=== PATIENT | female | born 1960 | race Caucasian/White ===

== ENCOUNTER 2016-06-21 15:22 | Observation (INO) | payer MEDICARE, OTHER ==
[~2016-06-21] VITALS: Ht 172.7 cm; Wt 67.0 kg
[~2016-06-21 15:22] MED LIST: ALBU0.086 NEB; ESZO3 PO; GABA300C3 PO; HYDR-3129 PO; KEPP1000 PO; METO50TA PO; ORPH100T PO; OXYC5 PO; TERI14TA PO; ZITH250T PO
[2016-06-21 15:33] VITALS: BP 134/78; PULSE 85; RESP 24; TEMP 98.2; O2SAT 89
--- NOTE | 2016-06-21 15:38 | PD ---
Physical Exam Time Seen by Provider: 15:36 Narrative 56yo F c/o SOB, dizziness, chills, aching x3 days. Denies V,D. Reports chest congestion. Denies chest pain. Subjective fever. Has had barium swallow verifying aspiration. Hx MS. VSS. Patient seen in triage. Waiting for bed placement. Data Data Last Documented VS Vital Signs Date Time Temp Pulse Resp B/P Pulse Ox O2 Delivery O2 Flow Rate FiO2 06/21/16 15:33 98.2 85 24 134/78 89 Room Air MDM Supervised Visit with FELIPE: Shelby Minor Jun 21, 2016 15:38
--- NOTE | 2016-06-21 18:09 | PD ---
HPI Chief Complaint: Respiratory Symptoms Time Seen by Provider: 18:07 Travel History International Travel<30 days: No Contact w/Intl Traveler<30days: No Traveled to known affect area: No History of Present Illness HPI Patient has a plan of possibly pneumonia 3 days. Patient reports she had a barium swallow test done a week ago that showed some aspiration. Patient states she has had pneumonia frequently most recently about 5 or 6 months ago. Patient states she is having some shortness of breath, generalized body aches, and subjective fevers. Patient is been coughing up greenish phlegm that has been getting thicker. Patient tried taking a breathing treatment prior to coming to the emergency department with minimal to no relief of her symptoms. Patient states she contacted her primary care doctor and she comes to the emergency department further treatment and evaluation. Patient denies any home use of oxygen. 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) Cardiac Catheterization: Yes Cardiovascular Problems: Yes (V-TACH) Chemotherapy: Yes (breast ca+; uterine; colorectal; not present) Chest Pain: Yes Congestive Heart Failure: No COPD: Yes Cerebrovascular Accident: Yes Coronary Artery Disease: Yes Diabetes: No Diminished Hearing: No Endocrine: No Gastrointestinal Disorders: Yes (HX GERD,ULCER) GERD: Yes Glaucoma: No Genitourinary: No Headaches: Yes Hepatitis: No Hiatal Hernia: No Hypertension: Yes Immune Disorder: Yes (MS) Kidney Stones: Yes Musculoskeletal: Yes Neurologic: Yes (MIGRINES, HX CEREBAL ANEURYSM CLIPPING,SEIZURES) Psychiatric: No Reproductive: Yes (RAMAKRISHNA-BSO) Respiratory: Yes (copd) Migraines: Yes Myocardial Infarction: No Radiation Therapy: Yes Seizures: Yes Sleep Apnea: No Thyroid Disease: Yes (HYPO ) Menopausal: Yes : 4 Para: 3 Miscarriage: 1 : 0 Past Surgical History Abdominal Surgery: Yes (CHOLY) AICD: No Appendectomy: Yes Body Medical Devices: HARDWARE LEFT ANKLE/ RIGHT ANKLE/FEET, ANEURYSM CLIP BRAIN Cardiac Surgery: No Cholecystectomy: Yes Coronary Artery Bypass Graft: No Ear Surgery: No Endocrine Surgery: No Eye Surgery: Yes (LEFT EYE) Genitourinary Surgery: Yes Gynecologic Surgery: Yes (C0ONE BX,SQUAMOUS CELL CA PERINEAL EXTENDED INTO RECTUM,VAGINA, RAMAKRISHNA-BSO) Hysterectomy: Yes Joint Replacement: No Neurologic Surgery: Yes (BRAIN ANEURISM CRANIOTOMY 2004) Oral Surgery: Yes (IMPLANTS FOR DENTURES) Pacemaker: No Thoracic Surgery: Yes (BRONCHOSCOPY X 2) Other Surgery: Yes (THYROIDECTOMY 06/30/15) Social History Alcohol Use: No Tobacco Use: Yes (1/2 PCK) Substance Use: No Allergies-Medications (Allergen,Severity, Reaction): Coded Allergies: Aspirin (Verified Allergy, Severe, Hives, 06/21/16) HIVES Ibuprofen (Verified Allergy, Severe, Hives, 06/21/16) Nonsteroidal Anti-Inflammatory Agts (Verified Allergy, Severe, ANAPHYLAXIS , 06/21/16) Monosodium Glutamate (Verified Adverse Reaction, Severe, STATES ALLERGIC, 06/21/16) Reported Meds & Prescriptions Reported Meds & Active Scripts Active Reported Keppra (Levetiracetam) 500 Mg Tab 500 Mg PO BID Metoprolol Tartrate 50 Mg Tab 50 Mg PO HS [place] (Hydrocodone-Acetaminophen) 10-325 Mg Tab 1 Tab PO Q6H PRN Gabapentin 300 Mg Cap 300 Mg PO HS Lunesta (Eszopiclone) 3 Mg Tab 3 Mg PO HS Albuterol Neb (Albuterol Sulfate) 2.5 Mg/3 Ml Neb 2.5 Mg NEB Q4HR NEB PRN Aubagio (Teriflunomide) 14 Mg Tab 14 Mg PO HS Fentanyl Inj (Fentanyl Citrate) 100 Mcg/2 Ml Amp Unknown Dose IMPLANT INTERMITTENT Flexeril (Cyclobenzaprine HCl) 10 Mg Tab 10 Mg PO HS Review of Systems Except as stated in HPI: all other systems reviewed are Neg Physical Exam Narrative GENERAL: Well-developed, well nourished, in no acute distress, and non-ill appearing. SKIN: Focused skin assessment warm and dry. HEAD: Atraumatic. Normocephalic. EYES: Pupils equal and round. EOMI. No scleral icterus. No injection or drainage. ENT: No nasal bleeding or discharge. Mucous membranes pink and moist. NECK: Trachea midline. Supple. No nuclear rigidity. CARDIOVASCULAR: Regular rate and rhythm. No murmur appreciated. RESPIRATORY: No accessory muscle use. No respiratory distress. Rhonchi noted bilateral lower lobes. Breath sounds equal bilaterally. Speaking in full sentences without distress. MUSCULOSKELETAL: No obvious deformities. No clubbing. No cyanosis. No edema. Full range of motion. NEUROLOGICAL: Awake and alert. No obvious cranial nerve deficits. Motor grossly within normal limits. Normal speech. PSYCHIATRIC: Appropriate mood and affect; insight and judgment normal. Data Data Last Documented VS Vital Signs Date Time Temp Pulse Resp B/P Pulse Ox O2 Delivery O2 Flow Rate FiO2 06/21/16 19:20 95 Nasal Cannula 2 06/21/16 19:20 98.3 87 20 119/78 06/21/16 18:20 21 Orders Electrocardiogram (06/21/16 18:05) Complete Blood Count With Diff (06/21/16 18:05) Comprehensive Metabolic Panel (06/21/16 18:05) Lactic Acid Sepsis Protocol (06/21/16 18:05) Influenzae A/B Antigen (06/21/16 18:05) Urinalysis - C+S If Indicated (06/21/16 18:05) Blood Culture (06/21/16 18:05) Chest, Single Ap (06/21/16 18:05) Ecg Monitoring (06/21/16 18:05) Iv Access Insert/Monitor (06/21/16 18:05) Oximetry (06/21/16 18:05) Oxygen Administration (06/21/16 18:05) Sodium Chloride 0.9% Flush (Ns Flush) (06/21/16 18:15) Ceftriaxone Inj (Rocephin Inj) (06/21/16 18:15) Azithromycin Inj (Zithromax Inj) (06/21/16 18:15) Albuterol-Ipratropium Neb (Duoneb Neb) (06/21/16 18:15) Methylprednisolone So Succ Inj (Solumedr (06/21/16 18:15) Nicotine 21 Mg Patch.24 Hr (Habitrol 21 (06/21/16 19:30) Acetamin-Hydrocod 325-10 Mg ([place] 10-32 (06/21/16 20:00) Admit Order (Ed Use Only) (06/21/16 20:34) Labs Laboratory Tests Test 06/21/16 06/21/16 19:20 19:30 White Blood Count 7.8 TH/MM3 Red Blood Count 3.94 MIL/MM3 Hemoglobin 13.1 GM/DL Hematocrit 37.5 % Mean Corpuscular Volume 95.1 FL Mean Corpuscular Hemoglobin 33.3 PG Mean Corpuscular Hemoglobin 35.0 % Concent Red Cell Distribution Width 13.8 % Platelet Count 125 TH/MM3 Mean Platelet Volume 9.2 FL Neutrophils (%) (Auto) 58.3 % Lymphocytes (%) (Auto) 32.5 % Monocytes (%) (Auto) 7.0 % Eosinophils (%) (Auto) 1.8 % Basophils (%) (Auto) 0.4 % Neutrophils # (Auto) 4.6 TH/MM3 Lymphocytes # (Auto) 2.5 TH/MM3 Monocytes # (Auto) 0.5 TH/MM3 Eosinophils # (Auto) 0.1 TH/MM3 Basophils # (Auto) 0.0 TH/MM3 CBC Comment DIFF FINAL Differential Comment Sodium Level 140 MEQ/L Potassium Level 3.9 MEQ/L Chloride Level 105 MEQ/L Carbon Dioxide Level 27.7 MEQ/L Anion Gap 7 MEQ/L Blood Urea Nitrogen 17 MG/DL Creatinine 1.17 MG/DL Estimat Glomerular Filtration 48 ML/MIN Rate Random Glucose 88 MG/DL Lactic Acid Level 0.9 mmol/L Calcium Level 8.5 MG/DL Total Bilirubin 0.5 MG/DL Aspartate Amino Transf 18 U/L (AST/SGOT) Alanine Aminotransferase 18 U/L (ALT/SGPT) Alkaline Phosphatase 193 U/L Total Protein 7.5 GM/DL Albumin 3.8 GM/DL Urine Color YELLOW Urine Turbidity CLEAR Urine pH 5.5 Urine Specific Tolst[place] 1.010 Urine Protein NEG mg/dL Urine Glucose (UA) NEG mg/dL Urine Ketones NEG mg/dL Urine Occult Blood NEG Urine Nitrite NEG Urine Bilirubin NEG Urine Urobilinogen LESS THAN 2.0 MG/DL Urine Leukocyte Esterase NEG Urine RBC LESS THAN 1 /hpf Urine WBC LESS THAN 1 /hpf Urine Squamous Epithelial 1 /hpf Cells Urine Mucus FEW /lpf Microscopic Urinalysis Comment CULT NOT INDICATED MDM Medical Decision Making Medical Screen Exam Complete: Yes Emergency Medical Condition: Yes Differential Diagnosis Pneumonia, aspiration pneumonia, sepsis, electrolyte abnormality, hypoxemia, COPD exacerbation, other Narrative Course Patient was seen and examined. Initial laboratory radiological studies were obtained and reviewed. Patient was started on IV antibiotics, given Solu-Medrol , and go. Discussed patient with Dr. Urñea, who saw and evaluated the patient and recommends having patient admitted for pneumonia. Discussed all findings and plan care of patient, who was agreeable for admission. All questions were answered Physician Communication Physician Communication 2030 discussed patient with Jeremy Mandujano PA-C for Dr. Callejas, who is agreeable to this patient. Diagnosis Primary Impression: Pneumonia Qualified Code: J18.9 - Pneumonia of both lower lobes due to infectious organism Admitting Information Admitting Physician Requests: Observation Condition: Stable Davonte Yeboah Jun 21, 2016 18:08
[2016-06-21] MEDS ORDERED: cefTRIAXone INJ 1,000 MG in SODIUM CHLORIDE 0.9% INJ 100 ML IV ONE (18:15)
[2016-06-21] MEDS ORDERED: AZITHROMYCIN INJ 500 MG in SODIUM CHLOR 0.9% 250 ML INJ 250 ML IV ONE (18:15)
[2016-06-21] MEDS ORDERED: SODIUM CHLORIDE 0.9% FLUSH 10 ML FLUSH IVF PRN (18:15)
[2016-06-21] MEDS ORDERED: methylPREDNISolone SOD SUCC 125 MG/2 ML VIAL IV ONE (18:15)
[2016-06-21] MEDS: RESP: ALBUTEROL 2.5 MG/IPRATROPIUM 0.5 MG NEB (SCH) INH (18:18)
[2016-06-21 18:20] VITALS: O2SAT 90
--- NOTE | 2016-06-21 18:31 | RADRPT ---
EXAM DATE/TIME: 06/21/2016 18:03 [facility] COMPARISON: CHEST SINGLE AP, January 02, 2016, 13:23. INDICATIONS : Short of breath, pneumonia. MEDICAL HISTORY : None. SURGICAL HISTORY : None. ENCOUNTER: Initial ACUITY: 2 weeks PAIN SCORE: 0/10 LOCATION: Bilateral chest FINDINGS: There is mild reticular parenchymal density in the lung bases. No evidence of effusion. Cardiac conto urs are stable and satisfactory. CONCLUSION: Mild basilar interstitial infiltrates Jeremy Tenorio MD on June 21, 2016 at 18:27 Board Certified Radiologist. This report was verified electronically.
--- NOTE | 2016-06-21 19:15 | PD ---
Data Data Last Documented VS Vital Signs Date Time Temp Pulse Resp B/P Pulse Ox O2 Delivery O2 Flow Rate FiO2 06/21/16 18:20 90 21 06/21/16 15:33 98.2 85 24 134/78 Room Air Orders Electrocardiogram (06/21/16 18:05) Complete Blood Count With Diff (06/21/16 18:05) Comprehensive Metabolic Panel (06/21/16 18:05) Lactic Acid Sepsis Protocol (06/21/16 18:05) Influenzae A/B Antigen (06/21/16 18:05) Urinalysis - C+S If Indicated (06/21/16 18:05) Blood Culture (06/21/16 18:05) Chest, Single Ap (06/21/16 18:05) Ecg Monitoring (06/21/16 18:05) Iv Access Insert/Monitor (06/21/16 18:05) Oximetry (06/21/16 18:05) Oxygen Administration (06/21/16 18:05) Sodium Chloride 0.9% Flush (Ns Flush) (06/21/16 18:15) Ceftriaxone Inj (Rocephin Inj) (06/21/16 18:15) Azithromycin Inj (Zithromax Inj) (06/21/16 18:15) Albuterol-Ipratropium Neb (Duoneb Neb) (06/21/16 18:15) Methylprednisolone So Succ Inj (Solumedr (06/21/16 18:15) MDM Supervised Visit with FELIPE: Yes Narrative Course The history, exam, and medical decision-making in the associated midlevel provider note were completed with my assistance. I reviewed and agree with the findings presented. I attest that I had a [id number] encounter with the patient on the same day, and personally performed and documented my assessment and findings in the medical record. *My assessment and Findings: This is a 56-year-old female who recently was diagnosed with aspiration by Dr. Barillas on a swallow study. She has a history of crest syndrome. She presents today with increasing shortness of breath, productive cough and fevers. She has bibasilar pneumonia on chest x-ray and is hypoxic to 90% on room air. Patient will require admission for IV antibiotics Riana Ureña MD Jun 21, 2016 19:15
[2016-06-21 19:20] VITALS: BP 119/78; PULSE 87; RESP 20; TEMP 98.3; O2SAT 95
[2016-06-21] MEDS ORDERED: NICOTINE 21 MG/24 HR PATCH T-DERMAL ONE (19:30)
[2016-06-21 19:39] LABS: AUTOMATED NEUTROPHIL # 4.6 TH/MM3 (1.8-7.7); BASOPHIL % 0.4 % (0.0-2.0); EOSINOPHIL # 0.1 TH/MM3 (0-0.4); EOSINOPHIL % 1.8 % (0.0-4.0); HEMATOCRIT 37.5 % (35.0-46.0); HEMO FLAGS DIFF FINAL; LYMPH % 32.5 % (9.0-44.0); LYMPHOCYTE # 2.5 TH/MM3 (1.0-4.8); MEAN CELL VOLUME 95.1 FL (80.0-100.0); MEAN CORPUSCULAR HEMOGLOBIN 33.3 PG (27.0-34.0); NEUT % 58.3 % (16.0-70.0); PLATELET COUNT 125 TH/MM3 (150-450); RED BLOOD COUNT 3.94 MIL/MM3 (4.00-5.30); RED CELL DISTRIBUTION WIDTH 13.8 % (11.6-17.2); WHITE BLOOD COUNT 7.8 TH/MM3 (4.0-11.0)
[2016-06-21 19:50] LABS: ANION GAP 7 MEQ/L (5-15); AST (GOT) 18 U/L (15-37); BICARBONATE 27.7 MEQ/L (21.0-32.0); BLOOD UREA NITROGEN 17 MG/DL (7-18); CHLORIDE 105 MEQ/L (98-107); GLOMERULAR FILTRATION RATE 48 ML/MIN (>89); POTASSIUM 3.9 MEQ/L (3.5-5.1); SODIUM (NA) 140 MEQ/L (136-145)
[2016-06-21 19:54] LABS: ALKALINE PHOSPHATASE 193 U/L (45-117); ALT (GPT) 18 U/L (10-53); TOTAL BILIRUBIN ADULT 0.5 MG/DL (0.2-1.0)
[2016-06-21] MEDS ORDERED: ACETAMINOPHEN/HYDROcodone 325 MG/10 MG TAB PO ONE (20:00)
[2016-06-21] MEDS ORDERED: FENT0.05 IMPLANT (20:14)
[2016-06-21] MEDS ORDERED: TERI14TA PO (20:14)
[2016-06-21] MEDS ORDERED: CYCL1TAB29 PO (20:14)
[2016-06-21] MEDS ORDERED: ESZO3TAB4 PO (20:18)
[2016-06-21] MEDS ORDERED: LEVE500 PO (20:18)
[2016-06-21] MEDS ORDERED: HYDR-3366 PO (20:18)
[2016-06-21] MEDS ORDERED: ALBU0.08 NEB (20:18)
[2016-06-21] MEDS ORDERED: GABA300C5 PO (20:18)
[2016-06-21] MEDS ORDERED: METO50TA PO (20:18)
[2016-06-21 20:23] LABS: BLOOD, URINE NEG (NEG); GLUCOSE,URINE NEG (NEG); KETONE, URINE NEG (NEG); MUCUS URINE FEW /lpf (OCC); NITRITE,URINE NEG (NEG); PH, URINE 5.5 (5.0-8.5); SQUAMOUS EPITHELIAL CELL URINE 1 /hpf (0-5); URINE COLOR YELLOW (YELLW/STRAW)
[2016-06-21 20:25] LABS: COMMENT (UR) CULT NOT INDICATED; CULTURE IF INDICATED CULT NOT INDICATED
[2016-06-21 22:00] VITALS: BP 121/59; PULSE 80; RESP 18; O2SAT 93
--- NOTE | 2016-06-21 22:49 | EKG ---
Date Performed: 06/21/2016 Time Performed: 20:18:03 PTAGE: 56 years EKG: Sinus rhythm NORMAL ECG PREVIOUS TRACING : 06/13/2015 16.06 Compared to previous tracing, nonspecific anterolateral T w ave abnormality has resolved. DOCTOR: Umer iSmpson Interpretating Date/Time 06/21/2016 22:48:40
== END 2016-06-21 23:45 | disposition left against medical advice (07) ==
LOC: NEPC 15:22 → NEDA 20:35
PROVIDERS: ADMIT Specialist; ATTEND Specialist
DX: R06.02 Shortness of breath (principal)
CPT/HCPCS: 71010; 80053; 81001; 83605; 85025; 87040; 87804; 93005; 94640; 94664; 96365; 96367; 96375; 99284; G0378; J0456; J0696; J2930; J7050

== ENCOUNTER → 2017-03-07 | Outpatient (CLI) | payer MEDICARE, OTHER ==
[~2017-03-07] MED LIST changes: +ALBU0.08 NEB; -ALBU0.086 NEB; +BEDSIDE COMMODE1 MI1; +CYCL10TA PO; +DOCU1CAP39 PO; +ESZO2 PO; -ESZO3 PO; +FOLDING REACHER1 MIS; -GABA300C3 PO; +GABA400C5 PO; -HYDR-3129 PO; +HYDR-3583 PO; -KEPP1000 PO; +LEVA250T14 PO; +LEVE500 PO; +LEVO-86 PO; -ORPH100T PO; -OXYC5 PO; +VARE1PAK3 PO; +WALKER WHEELS/F1 MIS; -ZITH250T PO
[2017-03-07 10:33] LABS: HEMATOCRIT 42.6 % (35.0-46.0); HEMOGLOBIN 14.3 GM/DL (11.6-15.3); MEAN CELL VOLUME 96.1 FL (80.0-100.0); MEAN CORPUSCULAR HEMOGLOBIN 32.2 PG (27.0-34.0); MEAN CORPUSCULAR HGB CONC 33.5 % (32.0-36.0); PLATELET COUNT 164 TH/MM3 (150-450); RED BLOOD COUNT 4.43 MIL/MM3 (4.00-5.30); RED CELL DISTRIBUTION WIDTH 13.9 % (11.6-17.2); WHITE BLOOD COUNT 12.3 TH/MM3 (4.0-11.0)
--- NOTE | 2017-03-07 10:48 | RADRPT ---
EXAM DATE/TIME: 03/07/2017 10:15 [facility] COMPARISON: CHEST PA & LAT, June 30, 2015, 13:12. INDICATIONS : Evaluate pneumonia, pneumothorax, or communicable disease. Pre op for back surgery. MEDICAL HISTORY : Chronic obstructive pulmonary disease. Hypercholesterolemia. Gastroesophageal reflux disease. Cer ebral aneurysm. Multiple sclerosis. V-tach. Atrial fibrillation. Breast cancer. Cervical cancer. Uter ine cancer. Squamous cell cancer perineal extended into rectum-vagina. SURGICAL HISTORY : Craniotomy. Cholecystectomy. Appendectomy. Hysterectomy. Cardiac catheterization. ENCOUNTER: Initial ACUITY: 1 day PAIN SCORE: 0/10 LOCATION: Bilateral chest FINDINGS: PA and lateral views of the chest demonstrate the lungs to be symmetrically aerated without evidence of mass, infiltrate or effusion. The cardiomediastinal contours are unremarkable. Osseous structure s are intact. CONCLUSION: No acute disease. No significant change has occurred. Salvador Weems MD on March 07, 2017 at 10:47 Board Certified Radiologist. This report was verified electronically.
[2017-03-07 10:52] LABS: BICARBONATE 27.6 MEQ/L (21.0-32.0); CALCIUM 9.2 MG/DL (8.5-10.1); CREATININE 1.05 MG/DL (0.50-1.00)
--- NOTE | 2017-03-07 21:50 | EKG ---
Date Performed: 03/07/2017 Time Performed: 09:29:20 PTAGE: 56 years EKG: Sinus rhythm with Nonspecific T wave abnormalities Normal ECG PREVIOUS TRACING : 06/21/2016 20.18 Compared to prior tracing no significant change DOCTOR: Gui Herrera Interpretating Date/Time 03/07/2017 21:50:10
== END ==
LOC: CPRE 08:56
PROVIDERS: ATTEND Neurological Surgery
DX: Z01.812 Encounter for preprocedural laboratory examination (principal); Z01.810 Encounter for preprocedural cardiovascular examination; Z01.811 Encounter for preprocedural respiratory examination; M48.062 Spinal stenosis, lumbar region with neurogenic claudication; M54.16 Radiculopathy, lumbar region; J44.9 Chronic obstructive pulmonary disease, unspecified; E78.00 Pure hypercholesterolemia, unspecified; G35 Multiple sclerosis; I48.91 Unspecified atrial fibrillation; Z85.3 Personal history of malignant neoplasm of breast; Z85.41 Personal history of malignant neoplasm of cervix uteri; Z85.42 Personal history of malignant neoplasm of other parts of uterus; K21.9 Gastro-esophageal reflux disease without esophagitis
CPT/HCPCS: 36415; 71020; 80048; 85027; 85610; 85730; 93005

== ENCOUNTER 2017-03-12 05:51 | Observation (INO) | payer MEDICARE, OTHER ==
[~2017-03-12] VITALS: Ht 172.7 cm; Wt 76.2 kg
[~2017-03-12 05:51] MED LIST changes: -BEDSIDE COMMODE1 MI1; -DOCU1CAP39 PO; -FOLDING REACHER1 MIS; -HYDR-3583 PO; -WALKER WHEELS/F1 MIS
[2017-03-12] MEDS ORDERED: CHLORHEXIDINE GLUCONATE 2 % 1 PACK (2 CLOTHS) TOPICAL PRN (06:15)
[2017-03-12] MEDS ORDERED: LACTATED RINGER'S 1000 ML IV PRN (06:15)
[2017-03-12] MEDS ORDERED: SODIUM CHLORID 0.9% 500 ML IV PRN (06:15)
[2017-03-12] MEDS ORDERED: POVIDONE IODINE 5% (ANTISEPSIS KIT) 4 APPLICATIONS EACH NARE PRN (06:15)
[2017-03-12] MEDS ORDERED: METOPROLOL TARTRATE 25 MG TAB PO PRN (06:15)
[2017-03-12] MEDS ORDERED: GELFOAM SIZE 100 ONE (07:03)
[2017-03-12] MEDS ORDERED: BUPIVACAINE HCL PF 0.25% 30 ML VIAL ONE ×2 (07:03→07:35)
[2017-03-12] MEDS ORDERED: THROMBIN (TOPICAL) 5,000 UNIT VIAL ONE (07:03)
[2017-03-12] MEDS ORDERED: LIDOCAINE 1%/EPINEPHrine 1:100,000 SOLN 20 ML VIAL ONE (07:04)
[2017-03-12] MEDS ORDERED: GENTAMICIN SULFATE 80 MG/2 ML VIAL ONE (07:04)
[2017-03-12] MEDS ORDERED: BUPIVACAINE LIPOSOME PF 1.3% 20 ML VIAL ONE (07:16)
[2017-03-12] MEDS ORDERED: RESP: ALBUTEROL 2.5 MG/3 ML NEB (SCH) INH ONE (07:30)
[2017-03-12] MEDS ORDERED: BUPIVACAINE/EPINEPHRINE 0.25% PF 30 ML VIAL ONE (07:30)
[2017-03-12] MEDS: ceFAZolin 1,000 MG/NS 100 ML IV SCH ×4 (07:40→11:41)
[2017-03-12] MEDS ORDERED: RESP: ALBUTEROL 2.5 MG/3 ML NEB (PRN) ONE (07:44)
[2017-03-12] MEDS ORDERED: APREPITANT 40 MG CAP ONE (07:48)
[2017-03-12] MEDS ORDERED: PROPOFOL 500 MG/50 ML INJ 50 ML ONE (09:06)
[2017-03-12] MEDS ORDERED: KETAMINE HCL 500 MG/5 ML VIAL ONE (09:07)
[2017-03-12] MEDS ORDERED: BUPIVACAINE LIPOSOME PF 1.3% 20 ML VIAL INFIL ONE (11:38)
[2017-03-12] MEDS ORDERED: ACETAMINOPHEN 1000 MG/100 ML 100 ML IV ONE (12:43)
--- NOTE | 2017-03-12 12:54 | RADRPT ---
EXAM DATE/TIME: 03/12/2017 09:26 [facility] COMPARISON: No previous studies available for comparison. INDICATIONS : Lumbar laminectomy and placement interspinous Coflex. MEDICAL HISTORY : None. SURGICAL HISTORY : None. ENCOUNTER: Initial ACUITY: 1 day PAIN SCORE: Non-responsive. LOCATION: Lumbar spine FINDINGS: A single lateral view of the lumbar spine was performed. There is normal alignment of the vertebral bodies with a prosthesis overlying the posterior elements at L4-5. CONCLUSION: 1. Postoperative change as above. Maxx Bonilla MD on March 12, 2017 at 12:50 Board Certified Radiologist. This report was verified electronically.
[2017-03-12] MEDS ORDERED: *RESP: ALBUTEROL 2.5 MG/3 ML NEB (PRN) PERIprocedural Use ONLY NEB ONE (12:59)
[2017-03-12] MEDS ORDERED: DO NOT ADM ANY ANTICOAGULANT DRUGS PRN (13:20)
[2017-03-12] MEDS: D5-1/2 NS + KCL 20 MEQ INJ 1,000 ML IV SCH ×3 (13:20→23:09)
--- NOTE | 2017-03-12 13:24 | PD.OP ---
Operative Report Date of Surgery: Mar 12, 2017 Preoperative Diagnosis: (1) Lumbar stenosis with neurogenic claudication (2) Lumbar radiculopathy 1. L3 4 and L4 5 canal and lateral recess stenosis 2. Right lumbar radiculopathy 3. Neurogenic claudication 4. Chronic low back pain Postoperative Diagnosis: (1) Lumbar stenosis with neurogenic claudication (2) Lumbar radiculopathy 1. L3 4 and L4 5 canal and lateral recess stenosis 2. Right lumbar radiculopathy 3. Neurogenic claudication 4. Chronic low back pain Procedure: 1. Bilateral L4 5 decompressive semi-laminectomy, medial facetectomy- microtechnique 2. Placement L4-5 interspinous process decompression device (Coflex) 3. Right L3-4 decompressive semi-laminectomy medial facetectomy-microtechnique Anesthesia: Gen. endotracheal Surgeon: Sriram Wang Store Protection Specialist(s): Alcira Lyons Operation and Findings: Findings: Severe bilateral L4 5 and moderately severe right L3 4 lateral recess stenosis, facet and ligament hypertrophy with impingement of the exiting nerve roots. Drug pump catheter entering at the midline L3-4 level Procedure in detail: The patient was brought into the operating room and general endotracheal anesthesia induced without difficulty. OLEKSANDR hose and sequential compression devices were placed. The Jmaison catheter was placed. Lines were established by anesthesia. The patient was positioned on the concentric Da table with the side bolsters and all extremities appropriately padded. Appropriate timeout procedure was performed with all personnel present and in agreement. 1% Xylocaine with epinephrine was used for local infiltration over the incision site which was made at the midline L3-5 level. The incision was carried sharply down to the lumbodorsal fascia which was incised adjacent to the spinous processes at the bilateral L4 5 and right L3-4 level. The pre-existing implantable drug pump catheter was located using AP and lateral C-arm imaging as well as palpation of the catheter and was visualized as it crossed from the left mid lumbar region to the L3-4 interspinous process region. The catheter was carefully preserved throughout the procedure. Eduardo elevator was used for subperiosteal elevation of paraspinous musculature and fascia away from the lamina and spinous process of L3 4 on the right side and L4 5 bilateral. The deep self-retaining retractor was placed. The appropriate levels were verified with intraoperative C-arm. Microscope was moved into place and used for the remainder of the procedure including the closure. At the L4-5 level starting on the right side and then working across the midline to the opposite side, the TPS drill with a 5 mm bone bur was used to remove the inferior margin of the more cephalad lamina and the superior aspect of the more caudal lamina along with a moderate amount of the bilateral medial facet, taking care not to disrupt the integrity of the facet or pars intra- articularis. There appeared to be at least mild instability of the L4-5 facet prior to the Coflex placement. Great care was taken to remove as little of the facet as possible during the decompression portion of the procedure. The hypertrophied ligamentum flavum was elevated away from the thecal sac with the thin ligament dissector and resected with the 15 blade knife and the Kerrison rongeur out to the level of the deep lateral recess to completely decompress the thecal sac and exiting nerve roots. The exiting L5 nerve roots were followed to the level of the medial pedicle to ensure that they were well decompressed. At each level on each side, the superior aspect of the more inferior facet along with hypertrophied ligament at the medial foramen were removed with the Kerrison rongeur to perform the bilateral foraminotomy. The interspinous ligament at the L4-5 level was very deteriorated, with the spinous processes mostly [id number]. The Pearson Mcginnis rongeur was used to remove the remaining interspinous ligament and decorticate the inferior L4 and superior L5 spinous process edge. The TPS drill was used to flatten out the dorsal aspect of the L3 and L4 lamina, taking care not to compromise the integrity of the lamina. The 12 mm Coflex trial was then placed and appeared to give good support to the spinous processes and facets. Any remaining soft tissue along the interspinous region and epidural space and interlaminar region was carefully removed to provide a clean tract for the Coflex device. The 12 mm Coflex device was then placed at the L4 5 level with the anterior aspect of the device placed as anterior as possible without compromising the thecal sac. The side wings were crimped at the L4 and L5 levels to secure the device. The placement was checked with intraoperative C-arm and felt to be satisfactory. A blunt hook was passed beneath the anterior aspect of the Coflex device to make certain that there was no compromise of the spinal canal. There appeared to be excellent support of the lamina and facet after the device was placed. Due to the presence of the drug pump catheter and the patient's primarily right- sided symptoms, it was elected to perform a limited right L3 4 decompressive semi-laminectomy and medial facetectomy at this level. This possibility was discussed with the patient prior to the surgery and she appeared to understand and agree with decompression alone at the right L3 4 level. The TPS drill with the 5 mm bone bur was used to remove the inferior third of the right elbow 3 and a small amount of the right L4 lamina and sufficient medial right L3 4 facet in order to decompress the lateral recess without causing significant facet instability. The hypertrophied ligamentum flavum was elevated away from the thecal sac with the thin ligament dissector and resected with a 3 mm Kerrison rongeur. The thecal sac at the central to right L3-4 level was well decompressed at the end of the procedure. The nerve roots appeared well decompressed at the end of the procedure. No spinal fluid leakage was encountered. The disc and annulus was visualized to make sure that there was no significant disc displacement or herniation. Bleeding was carefully controlled with the bipolar forceps. The closure was performed with 0 Vicryl interrupted for the deep and superficial fascia, with 3-0 Vicryl interrupted subcutaneous closure, and 4-0 Vicryl running subcuticular closure. A dressing of sterile Mastisol, Steri- Strips, and Primapore was placed. The patient was taken to recovery room in stable condition. All counts were correct at the end of the case. Estimated blood loss was 200 cc. Sriram Wang MD Mar 12, 2017 13:24
[2017-03-12] MEDS ORDERED: MIDAZOLAM HCL 2 MG/2 ML VIAL ONE (13:34)
[2017-03-12] MEDS ORDERED: ePHEDrine/NS 25 MG/5 ML SYRINGE IV ONE (13:37)
[2017-03-12] MEDS ORDERED: DEXAMETHASONE SOD PHOS 4 MG/ML VIAL IV ONE (13:37)
[2017-03-12] MEDS ORDERED: ROCURONIUM INJ 50 MG/5 ML SYRINGE IV PUSH ONE ×2 (13:37)
[2017-03-12] MEDS ORDERED: ONDANSETRON HCL 4 MG/2 ML VIAL IV PUSH ONE (13:37)
[2017-03-12] MEDS ORDERED: GLYCOPYRROLATE 1 MG/5 ML SYRINGE IV PUSH ONE (13:37)
[2017-03-12] MEDS ORDERED: ESMOLOL HCL 100 MG/10 ML VIAL IV ONE (13:37)
[2017-03-12] MEDS ORDERED: LIDOCAINE HCL 1% PF 5 ML SYRINGE OTHER ONE (13:37)
[2017-03-12] MEDS ORDERED: SUCCINYLCHOLINE CHLORIDE 100 MG/5 ML SYRINGE IV PUSH ONE (13:37)
[2017-03-12] MEDS ORDERED: LACTATED RINGER'S 1000 ML INJ 1,000 ML IV ONE (13:37)
[2017-03-12] MEDS ORDERED: PHENYLEPH/NS 1000 MCG/10 ML SYR IV ONE (13:37)
[2017-03-12] MEDS ORDERED: ceFAZolin INJ 1,000 MG VIAL IV ONE (13:37)
[2017-03-12] MEDS ORDERED: NEOSTIGMINE 5 MG/5 ML SYRINGE IV PUSH ONE (13:37)
[2017-03-12] MEDS ORDERED: PROPOFOL 200 MG/20 ML AMP IV ONE (13:37)
[2017-03-12] MEDS ORDERED: PHENYLEPHRINE HCL 10 MG/ML VIAL IV ONE (13:37)
[2017-03-12] MEDS ORDERED: NORMOSOL R INJ 1,000 ML IV ONE (13:37)
[2017-03-12] MEDS ORDERED: ACETAMINOPHEN/HYDROcodone 325 MG/5 MG TAB PO PRN (13:45)
[2017-03-12] MEDS ORDERED: NALOXONE HCL 0.4 MG/ML AMP IV PUSH PRN (13:45)
[2017-03-12] MEDS ORDERED: ONDANSETRON HCL 4 MG/2 ML VIAL IV PUSH PRN (13:45)
[2017-03-12] MEDS ORDERED: D5-1/2 NS + KCL 20 MEQ INJ 1,000 ML ONE (13:49)
[2017-03-12 15:34] VITALS: BP 137/82; PULSE 78; RESP 19; TEMP 95.5; O2SAT 96
[2017-03-12] MEDS: MORPHINE SULFATE 2 MG/ML INJ IV PUSH PRN ×2 (16:50→20:32)
[2017-03-12] MEDS ORDERED: BALANCED SALT SOLN OPHT IRRIG 15 ML BTL ONE (17:50)
[2017-03-12] MEDS ORDERED: TETRACAINE 0.5% OPTH SOLN 4 ML BTL ONE (17:50)
[2017-03-12] MEDS ORDERED: ERYTHROMYCIN 0.5% OPTH OINT 1 GM TUBO ONE (17:51)
[2017-03-12] MEDS ORDERED: ERYTHROMYCIN 0.5% OPTH OINT 3.5 GM TUBO LEFT EYE ONE (18:15)
[2017-03-12] MEDS ORDERED: BALANCED SALT SOLN OPHT IRRIG 15 ML BTL LEFT EYE ONE (18:15)
[2017-03-12] MEDS ORDERED: TETRACAINE 0.5% OPTH SOLN 4 ML BTL LEFT EYE ONE (18:15)
[2017-03-12 19:20] VITALS: BP 107/56; PULSE 86; RESP 15; TEMP 97.3; O2SAT 96
[2017-03-12] MEDS: ACETAMINOPHEN/HYDROcodone 325 MG/10 MG TAB PO PRN ×2 (19:38→23:42)
[2017-03-12] MEDS: DOCUSATE SODIUM 100 MG CAP PO SCH (19:39)
[2017-03-12 19:40] VITALS: BP 137/66; PULSE 90; RESP 16; TEMP 97.2; O2SAT 95
[2017-03-12 23:40] VITALS: BP 107/56; PULSE 86; RESP 16; TEMP 97.3; O2SAT 96
[2017-03-13] VITALS (7 sets, daily range): BP systolic 102–142; BP diastolic 58–71; PULSE 90–102; RESP 18–24; TEMP 96.4–97.4; O2SAT 92–97
[2017-03-13] MEDS ORDERED: ESZOPICLONE 2 MG TAB PO PRN (00:15)
[2017-03-13] MEDS ORDERED: RESP: ALBUTEROL 2.5 MG/3 ML NEB (PRN) NEB (00:15)
[2017-03-13] MEDS ORDERED: VARENICLINE PO SCH (00:15)
[2017-03-13] MEDS: ESZOPICLONE 3 MG TAB PO PRN ×2 (00:44→22:29)
[2017-03-13] MEDS: MORPHINE SULFATE 2 MG/ML INJ IV PUSH PRN ×6 (00:44→20:16)
[2017-03-13] MEDS: ACETAMINOPHEN/HYDROcodone 325 MG/10 MG TAB PO PRN ×5 (03:40→23:20)
[2017-03-13] MEDS: D5-1/2 NS + KCL 20 MEQ INJ 1,000 ML IV SCH (08:14)
[2017-03-13] MEDS: levETIRAcetam 500 MG TAB PO SCH ×2 (08:15→20:16)
[2017-03-13] MEDS: DOCUSATE SODIUM 100 MG CAP PO SCH ×2 (08:15→20:16)
[2017-03-13] MEDS ORDERED: NON-FORMULARY DRUG (Levothyroxine (Synthroid) 137 MCG) PO SCH (09:00)
[2017-03-13] MEDS ORDERED: INFLUENZA VIRUS VACCINE (QUADRIVALENT) 0.5 ML SYR IM ONE (10:00)
[2017-03-13] MEDS ORDERED: PNEUMOCOCCAL POLYVALENT INJ 25 MCG/0.5 ML SYR IM ONE (10:00)
[2017-03-13] MEDS ORDERED: FOLDING REACHER1 MIS (14:28)
[2017-03-13] MEDS ORDERED: BEDSIDE COMMODE1 MI1 (14:28)
[2017-03-13] MEDS ORDERED: WALKER WHEELS/F1 MIS (14:28)
--- NOTE | 2017-03-13 14:32 | HHI.FF ---
Face to Face Verification Diagnosis: (1) Lumbar stenosis with neurogenic claudication (2) Lumbar radiculopathy (3) S/P lumbar laminectomy Physical Therapy Order: Evaluate and Treat I have seen patient Rafaela Stinson on 03/13/17. My clinical findings support the need for the requested home health care services because: Deconditioned w/ increased weakness Limited ability to care for self High risk of falls I certify that my clinical findings support that this patient is homebound because: Post-op weakness Unsteady gait/balance Unsafe to leave home unassisted Dwaine Osborne Mar 13, 2017 14:32 Sriram Wang MD Mar 13, 2017 21:33
--- NOTE | 2017-03-13 14:39 | HHI.DCPOC ---
Discharge Care Plan Diagnosis: (1) Lumbar stenosis with neurogenic claudication (2) Lumbar radiculopathy (3) S/P lumbar laminectomy Your Health Problems Are: Incision/Drains Exercise Tolerance Loss of Movements Goals to Promote Your Health * To prevent worsening of your condition and complications * To maintain your health at the optimal level No lifting, bending, pushing, pulling or other strenuous activity. Leave the dressing on over the surgical incisions for 1 week. After that you may take the outer dressing off but leave the steri-strips on and let them fall off on their own. No showering until the surgical incision is totally healed. Take the pain medication as prescribed. Avoid taking any medication that contains aspirin or NSAIDs (ibuprofen, naproxen , Motrin, Advil, Naprosyn) for at least a month. Follow up in the office in 2 weeks for a wound check. Directions to Meet Your Goals Take your medications as prescribed Follow your dietary instruction Follow activity as directed No lifting, bending, pushing, pulling or other strenuous activity. Leave the dressing on over the surgical incisions for 1 week. After that you may take the outer dressing off but leave the steri-strips on and let them fall off on their own. No showering until the surgical incision is totally healed. Take the pain medication as prescribed. Avoid taking any medication that contains aspirin or NSAIDs (ibuprofen, naproxen , Motrin, Advil, Naprosyn) for at least a month. Follow up in the office in 2 weeks for a wound check. Keep your appointments as scheduled Take your immunizations and boosters as scheduled If your symptoms worsen call your PCP, if no PCP go to Urgent Care Center or Emergency Room Smoking is Dangerous to Your Health. Avoid second hand smoke Call the 24-hour hour crisis hotline for domestic abuse at Dwaine Osborne Mar 13, 2017 14:39 Sriram Wang MD Mar 13, 2017 21:33
--- NOTE | 2017-03-13 14:41 | HHI.DS ---
Dwaine Osborne [facility] 03/13/17 1441: Discharge Summary Admission Date Mar 12, 2017 at 13:04 Discharge Date: Mar 14, 2017 Admitting Diagnosis (1) Lumbar stenosis with neurogenic claudication ICD Code: M48.062 - Spinal stenosis, lumbar region with neurogenic claudication (2) Lumbar radiculopathy ICD Code: M54.16 - Radiculopathy, lumbar region (3) S/P lumbar laminectomy ICD Code: Z98.890 - Other specified postprocedural states Hospital Course 03/12: The patient presented to [facility] to have a bilateral L4-5 decompressive semi-laminectomy with placement of a Coflex device. Post- operatively she was admitted to a regular med/surg floor. 03/13: When seen the patient is in bed laying on her right side. She does say she has some pain to the back. She has some numbness to the bottom of the right foot otherwise she has no pain, numbness or tingling to the lower extremities. She is moving the extremities spontaneously without any difficulty. She is able to sit up in bed moving slowly but without difficulty. Physical Therapy evaluated the patient today and recommended that the patient be discharged home with further therapy through Home Health. It was also recommended that the patient use a wheeled walker, bedside commode and a metal roaster. Pt Condition on Discharge: Good Discharge Disposition: Disch w/ Home Health Serv Discharge Instructions DIET: Follow Instructions for: As Tolerated, No Restrictions ACTIVITIES You can perform: Weight Bearing As Anil Activities to Avoid: Lifting/Bending, Strenuous Activity, Bathing, Shower ADDITIONAL Activity Instructio: No lifting, bending, pushing, pulling or other strenuous activity. Leave the dressing on over the surgical incisions for 1 week. After that you may take the outer dressing off but leave the steri-strips on and let them fall off on their own. No showering until the surgical incision is totally healed. Additional Information Leave the dressing on over the surgical incisions for 1 week. After that you may take the outer dressing off but leave the steri-strips on and let them fall off on their own. No showering until the surgical incision is totally healed. Take the pain medication as prescribed. Avoid taking any medication that contains aspirin or NSAIDs (ibuprofen, naproxen , Motrin, Advil, Naprosyn) for at least a month. Follow up in the office in 2 weeks for a wound check. Sriram Wang MD 03/13/17 2136: Dwaine Osborne Mar 13, 2017 14:41 Sriram Wang MD Mar 13, 2017 21:36
[2017-03-13] MEDS ORDERED: DOCU1CAP39 PO (14:44)
[2017-03-13] MEDS ORDERED: HYDR-3583 PO (14:48)
--- NOTE | 2017-03-13 16:21 | HHI.NSPN ---
(Dwaine Osborne) History Chief Complaint: Some back pain. (Dwaine Osborne) Interval History 03/12: The patient presented to [facility] to have a bilateral L4-5 decompressive semi-laminectomy with placement of a Coflex device. Post- operatively she was admitted to a regular med/surg floor. 03/13: When seen the patient is in bed laying on her right side. She does say she has some pain to the back. She has some numbness to the bottom of the right foot otherwise she has no pain, numbness or tingling to the lower extremities. She is moving the extremities spontaneously without any difficulty. She is able to sit up in bed moving slowly but without difficulty. Physical Therapy evaluated the patient today and recommended that the patient be discharged home with further therapy through Home Health. It was also recommended that the patient use a wheeled walker, bedside commode and a sewer line photo inspector. (Dwaine Osborne) Exam Results 03/11/17 03/11/17 03/12/17 03/12/17 03/13/17 03/13/17 06:00 18:00 06:00 18:00 06:00 18:00 Intake Total 2820 ml 2420 ml 850 ml Output Total 2890 ml 1995 ml Balance -70 ml 425 ml 850 ml Intake Oral 720 ml 850 ml IV Total 2700 ml 1700 ml Other 120 ml Output Urine Total 1425 ml 1975 ml Drainage Total 15 ml 20 ml Estimated Blood Loss 200 ml Other 1250 ml # Voids 5 Vital Signs Date Time Temp Pulse Resp B/P (MAP) Pulse Ox O2 Delivery O2 Flow Rate FiO2 03/13/17 15:26 97.4 94 18 92 03/13/17 12:00 96.6 102 18 102/58 (73) 92 03/13/17 09:47 96 03/13/17 07:48 96.4 90 18 121/60 (80) 92 03/13/17 02:51 96 03/12/17 23:40 97.3 86 16 107/56 (73) 96 03/12/17 19:40 97.2 90 16 137/66 (89) 95 03/12/17 15:34 95.5 78 19 137/82 (100) 96 03/12/17 14:50 97.7 75 15 136/65 (88) 95 Nasal Cannula 3 03/12/17 14:15 74 14 143/68 (93) 94 Nasal Cannula 3 03/12/17 14:00 74 14 151/70 (97) 95 Nasal Cannula 3 03/12/17 13:45 72 14 148/72 (97) 93 Nasal Cannula 3 03/12/17 13:30 74 14 155/70 (98) 99 Nasal Cannula 3 03/12/17 13:15 97.6 80 14 166/76 (106) 99 Nasal Cannula 3 (Dwaine Osborne) Physical Examination GENERAL: Awake & alert watching TV in bed on her side. Readily interacts. Affect essentially normal. No distress apparent. HEENT: Normocephalic, atraumatic. RESPIRATORY: Slight wheeze but otherwise clear, equal excursion, nonlaboured, on RA. CARDIOVASCULAR: S1S2 w/RRR w/o M/G/R. GASTROINTESTINAL: Abdomen soft, nontender, positive bowel sounds. MUSCULOSKELETAL: GE w/o difficulty, NTTP. Lumbar surgical incision moderately TTP w/intact dressing, BONNY drain insertion site NTTP w/intact dressing, both w/o any evident drainage, erythema or streaking. NEUROLOGICAL: AAOx3. Speech clear & appropriate. Follows commands w/o difficulty. Sensation decreased to light touch to the sole of the right foot o/w intact to light touch to the extremities. Motor strength is 5/5 to all major flexion & extension muscle groups of the extremities. (Dwaine Osborne) Lab, Micro, Other Results Recent Impressions Lumbar Spine X-Ray 03/12/17 0000 Signed Impressions: Service Date/Time: Sunday, March 12, 2017 09:26 - CONCLUSION: 1. Postoperative change as above. Maxx Bonilla MD (Dwaine Osborne) Medical Decision Making Impression and Plan Impression: Preoperative Diagnosis: (1) Lumbar stenosis with neurogenic claudication (2) Lumbar radiculopathy 1. L3 4 and L4 5 canal and lateral recess stenosis 2. Right lumbar radiculopathy 3. Neurogenic claudication 4. Chronic low back pain Patient is doing well post-operatively. Her pain is essentially controlled. Minimal numbness to right foot o/w neurologically intact. BONNY drain output since surgery was 35 mL this morning. POD #1 () s/p: 1. Bilateral L4 5 decompressive semi-laminectomy, medial facetectomy- microtechnique 2. Placement L4-5 interspinous process decompression device (Coflex) 3. Right L3-4 decompressive semi-laminectomy medial facetectomy-microtechnique Postoperative Diagnosis: (1) Lumbar stenosis with neurogenic claudication (2) Lumbar radiculopathy 1. L3 4 and L4 5 canal and lateral recess stenosis 2. Right lumbar radiculopathy 3. Neurogenic claudication 4. Chronic low back pain Plan: D/C BONNY drain. D/C Jamison catheter. Will place discharge home tomorrow morning so as to allow Case Management to set up home health and obtain DME. (Dwaine Osborne) Attending Statement The exam, history, and the medical decision-making described in the above note were completed with the assistance of the mid-level provider. I reviewed and agree with the findings presented. I attest that I had a [id number] encounter with the patient on the same day, and personally performed and documented my assessment and findings in the medical record. On examination 03/13/2017 the patient is sitting up in bed. She appears relatively comfortable The dressing is dry and intact without significant erythema or edema. Moderate tenderness around the operative site Sensation is mildly diminished over the plantar aspect of the left foot-she states this was probably like this before surgery. Motor strength is intact in the lower extremities Physical therapy notes reviewed Doing well from neurosurgical standpoint Plan discharge home 03/14/2017 She indicates that pain control is not very good at present. We will switch her to MS Martín (Sriram Wang MD) Dwaine Osborne Mar 13, 2017 16:21 Sriram Wang MD Mar 13, 2017 21:36
[2017-03-13] MEDS: GABAPENTIN 400 MG CAP PO SCH (18:00)
[2017-03-13] MEDS ORDERED: TERIFLUNOMIDE 14 MG PO SCH (21:00)
[2017-03-13] MEDS ORDERED: METOPROLOL TARTRATE 50 MG TAB PO SCH (21:00)
[2017-03-13] MEDS ORDERED: CYCLOBENZAPRINE HCL 10 MG TAB PO SCH (21:00)
[2017-03-13] MEDS: MORPHINE SULFATE 15 MG CONTROLLED RELEASE TAB PO SCH (21:54)
[2017-03-13] MEDS ORDERED: MORPHINE SULFATE 2 MG/ML INJ IV PUSH PRN (22:45)
[2017-03-14] VITALS: BP 142/71; PULSE 67; RESP 20; TEMP 97; O2SAT 96
[2017-03-14 04:00] VITALS: BP 129/65; PULSE 65; RESP 20; TEMP 97.1; O2SAT 96
[2017-03-14] MEDS: ACETAMINOPHEN/HYDROcodone 325 MG/10 MG TAB PO PRN ×2 (04:44→12:19)
[2017-03-14 08:00] VITALS: BP 98/56; PULSE 64; RESP 18; TEMP 96.9; O2SAT 94
[2017-03-14] MEDS: GABAPENTIN 400 MG CAP PO SCH ×2 (09:29→12:19)
[2017-03-14] MEDS: DOCUSATE SODIUM 100 MG CAP PO SCH (09:30)
[2017-03-14] MEDS: MORPHINE SULFATE 15 MG CONTROLLED RELEASE TAB PO SCH (09:30)
[2017-03-14] MEDS: levETIRAcetam 500 MG TAB PO SCH (09:30)
== END 2017-03-14 12:33 | disposition home health service (06) ==
LOC: HSDC 05:51 → HSDI 13:04 → N06A 15:00
PROVIDERS: ADMIT Neurological Surgery; ATTEND Neurological Surgery
DX: M48.062 Spinal stenosis, lumbar region with neurogenic claudication (principal); M54.16 Radiculopathy, lumbar region; G89.29 Other chronic pain; M54.5 Low back pain; Z23 Encounter for immunization
CPT/HCPCS: 00630; 22867; 63030; 72020; 76000; 86850; 86900; 86901; 94150; 97110; 97116; 97162; C1713; C9290; G0008; G0378; G8987; G8988; J0131; J0330; J0690; J1100; J1580; J2250; J2270; J2370; J2405; J2710; J3010; J3480; J7120; J7613; J8501; Q2038; 90471; 90686

== ENCOUNTER 2017-07-23 06:14 | Inpatient (IN) | payer MEDICARE, OTHER ==
[~2017-07-23] VITALS: Ht 172.7 cm; Wt 79.2 kg
[~2017-07-23 06:14] MED LIST changes: +BEDSIDE COMMODE1 MI1; +FENT0.05; +FOLDING REACHER1 MIS; +HYDR-3583 PO; -LEVA250T14 PO; +WALKER WHEELS/F1 MIS
[2017-07-23] MEDS ORDERED: LACTATED RINGER'S 1000 ML IV PRN (06:30)
[2017-07-23] MEDS ORDERED: SODIUM CHLORID 0.9% 500 ML IV PRN (06:30)
[2017-07-23] MEDS ORDERED: LACTATED RINGER'S 1000 ML INJ 1,000 ML IV SCH (06:30)
[2017-07-23] MEDS ORDERED: METOPROLOL TARTRATE 25 MG TAB PO PRN (06:30)
[2017-07-23] MEDS ORDERED: POVIDONE IODINE 5% (ANTISEPSIS KIT) 4 APPLICATIONS EACH NARE PRN (06:30)
[2017-07-23] MEDS ORDERED: CHLORHEXIDINE GLUCONATE 2 % 1 PACK (2 CLOTHS) TOPICAL PRN (06:30)
[2017-07-23] MEDS ORDERED: ceFAZolin 1,000 MG/NS 100 ML IV SCH ×2 (06:30)
[2017-07-23] MEDS ORDERED: PROPOFOL 500 MG/50 ML INJ 150 ML ONE (07:25)
[2017-07-23] MEDS ORDERED: KETAMINE HCL 500 MG/10 ML VIAL ONE (07:26)
[2017-07-23] MEDS ORDERED: RESP: ALBUTEROL 2.5 MG/3 ML NEB (PRN) ONE (07:26)
[2017-07-23] MEDS ORDERED: APREPITANT 40 MG CAP ONE (07:35)
[2017-07-23] MEDS ORDERED: SUFentanil INJ 250 MCG/5 ML AMP ONE (07:54)
[2017-07-23] MEDS ORDERED: ARTIFICIAL TEARS OPTH OINT 3.5 APPLIC/3.5 GM TUBO ONE (07:54)
[2017-07-23] MEDS ORDERED: THROMBIN (TOPICAL) 5,000 UNIT VIAL ONE (08:11)
[2017-07-23] MEDS ORDERED: LIDOCAINE 1%/EPINEPHrine 1:100,000 SOLN 20 ML VIAL ONE (08:11)
[2017-07-23] MEDS ORDERED: BUPIVACAINE HCL PF 0.25% 30 ML VIAL ONE (08:12)
[2017-07-23] MEDS ORDERED: GELFOAM SIZE 100 ONE (08:12)
[2017-07-23] MEDS ORDERED: GENTAMICIN SULFATE 80 MG/2 ML VIAL ONE (08:12)
[2017-07-23] MEDS ORDERED: BUPIVACAINE LIPOSOME PF 1.3% 20 ML VIAL ONE (08:14)
[2017-07-23] MEDS ORDERED: ceFAZolin INJ 1,000 MG VIAL IV ONE ×2 (09:05→12:00)
[2017-07-23] MEDS ORDERED: BUPIVACAINE LIPOSOME PF 1.3% 20 ML VIAL INFIL ONE (09:55)
[2017-07-23 11:56] VITALS: BP 176/78; PULSE 104; RESP 18; TEMP 98.3; O2SAT 92
[2017-07-23] MEDS ORDERED: SODIUM CHLOR 0.9% 250 ML INJ 250 ML IV ONE (12:00)
[2017-07-23] MEDS ORDERED: PHENYLEPHRINE HCL 10 MG/ML VIAL IV ONE (12:00)
[2017-07-23] MEDS ORDERED: ROCURONIUM INJ 50 MG/5 ML SYRINGE IV PUSH ONE (12:00)
[2017-07-23] MEDS ORDERED: DEXAMETHASONE SOD PHOS 4 MG/ML VIAL IV ONE (12:00)
[2017-07-23] MEDS ORDERED: ePHEDrine/NS 25 MG/5 ML SYRINGE IV ONE (12:00)
[2017-07-23] MEDS ORDERED: PROPOFOL 200 MG/20 ML AMP IV ONE (12:00)
[2017-07-23] MEDS ORDERED: LIDOCAINE HCL 1% PF 5 ML SYRINGE OTHER ONE (12:00)
[2017-07-23] MEDS ORDERED: ONDANSETRON HCL 4 MG/2 ML VIAL IV ONE (12:00)
[2017-07-23] MEDS ORDERED: LACTATED RINGER'S 1000 ML INJ 2,000 ML IV ONE (12:00)
[2017-07-23] MEDS ORDERED: PHENYLEPH/NS 1000 MCG/10 ML SYR IV ONE (12:00)
[2017-07-23] MEDS ORDERED: NALOXONE HCL 0.4 MG/ML AMP IV PUSH PRN (13:15)
[2017-07-23] MEDS ORDERED: VARENICLINE PO SCH (13:15)
[2017-07-23] MEDS ORDERED: RESP: ALBUTEROL 2.5 MG/3 ML NEB (PRN) NEB (13:15)
[2017-07-23] MEDS ORDERED: ACETAMINOPHEN/HYDROcodone 325 MG/10 MG TAB PO PRN (13:15)
[2017-07-23] MEDS ORDERED: DO NOT ADM ANY ANTICOAGULANT DRUGS PRN (13:20)
[2017-07-23] MEDS ORDERED: MIDAZOLAM HCL 2 MG/2 ML VIAL ONE (13:31)
--- NOTE | 2017-07-23 13:37 | PD.OP ---
Operative Report Date of Surgery: July 23, 2017 Preoperative Diagnosis: (1) Lumbar stenosis with neurogenic claudication (2) Lumbar radiculopathy 1. L3-4 and L4-5 canal stenosis 2. Neurogenic claudication 3. Lumbar radiculopathy 4. Status post L4-5 decompressive semi-laminectomy, Coflex placement. Residual L4-5 lateral recess stenosis 5. Status post placement of intrathecal drug pump in Omar and Postoperative Diagnosis: (1) Lumbar stenosis with neurogenic claudication (2) Lumbar radiculopathy 1. L3-4 and L4-5 canal stenosis 2. Neurogenic claudication 3. Lumbar radiculopathy 4. Status post L4-5 decompressive semi-laminectomy, Coflex placement. Residual L4-5 lateral recess stenosis 5. Status post placement of intrathecal drug pump in Omar and Procedure: 1. Bilateral L3-4 decompressive semi-laminectomy 2. 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 Revision L4-5 decompressive semi-laminectomy, removal Coflex device Anesthesia: General Surgeon: Sriram Wang Stonemason Apprentice(s): Gena Sousa Operation and Findings: Indications: 57-year-old female with chronic back and lower extremity pain symptoms. Patient underwent previous L4-5 decompressive semi-laminectomy with Coflex placement March 2017 for claudication type symptoms. Symptoms initially improved but then recurred in the bilateral lower extremities with claudication symptoms and possible bilateral L5 radicular symptoms, right greater than left. Subsequent postop imaging has revealed moderate residual/recurrent stenosis at the cephalad aspect of the L4-5 level. There is moderately severe residual L3- 4 stenosis which was not addressed at the previous surgical procedure due to the presence of the intrathecal drug pump catheter at this level as well as a more severe stenosis at the L4-5 level. Findings: Moderate scar tissue with small dural fistula at the pump catheter entry site into the thecal sac. Procedure in detail: The patient was brought into the operating room and general endotracheal anesthesia induced without difficulty. OLEKSANDR hose and sequential compression devices were placed. The Jamison catheter was placed. Lines were established by anesthesia. Leads for intraoperative neuro monitoring were placed and a baseline study obtained. The patient was positioned on the concentric Da table with the side bolsters and all extremities appropriately padded. Appropriate time-out procedure was performed with all personnel present and in agreement. 1% Xylocaine with epinephrine was used for local infiltration over the incision site which was made at the midline L3-5 level. The incision was carried sharply down to the lumbodorsal fascia which was incised adjacent to the spinous processes. The existing drug pump catheter which came across the L3-4 level from the left side and entered the interspinous space from the right side was delineated and marked adhesions cleared from around the catheter up to the entry point into the intralaminar space. Eduardo elevator was used for subperiosteal elevation of paraspinous musculature and fascia away from the lamina and spinous process. The deep self- retaining retractor was placed. The appropriate levels were verified with intraoperative C-arm. Microscope was moved into place and used for the remainder of the procedure including the closure. At the L3-4 level, starting on the left and then working across the midline to the opposite side, the TPS drill with a 5 mm bone bur followed by the 4 mm cosme bur was used to remove the inferior two thirds of the more cephalad lamina and the superior aspect of the more caudal lamina along with a moderate amount of the bilateral medial facet, taking care not to disrupt the integrity of the facet or pars intra-articularis. The pump catheter was traced down to its entry point into the thecal sac. There were some adhesions around this area and thickened ligamentum flavum which was still pushing on the thecal sac. The hypertrophied ligament was gently elevated away from the thecal sac with a thin ligament dissector. There was a small dural fistula beneath the ligament with a small amount of CSF leakage encountered. This dural fistula was primarily repaired with 6-0 Prolene suture with a single stitch. Once the hypertrophied ligament and facet at the bilateral L3-4 level was removed and adequate decompression of the thecal sac and exiting nerve roots was accomplished, FloSeal was temporarily applied to control bleeding along the epidural space. This was gently suctioned and removed followed by application of a thin layer of Gelfoam and thrombin followed by a thin layer of DuraSeal to help decrease risk of any subsequent CSF leakage. The region appeared dry and free of any active cerebrospinal fluid leakage at the time of closure. At the L4-5 level, there was some residual hypertrophied ligament beneath the lamina at the bilateral upper L4-5 facet level. In order to adequately remove this hypertrophy ligament and facet, the previous Coflex device was removed. An additional border of the inferior L4 lamina was removed with the TPS drill and the Kerrison rongeur and the residual hypertrophied ligament removed with a thin ligament dissector and Kerrison rongeur. The nerve roots appeared well decompressed at the end of the procedure. No spinal fluid leakage was noted at the time of closure. The disc and annulus at each level was visualized to make sure that there was no significant disc displacement or herniation. Bleeding was carefully controlled with the bipolar forceps. The closure was performed with 0 Vicryl interrupted for the deep and superficial fascia, with 3-0 Vicryl interrupted subcutaneous closure, and 4-0 Vicryl running subcuticular closure. A dressing of sterile Mastisol, Steri- Strips, and Primapore was placed. The patient was taken to recovery room in stable condition. All counts were correct at the end of the case. Estimated blood loss was 400 cc. No specimen was sent to pathology Sriram Wang MD July 23, 2017 13:37
[2017-07-23] MEDS ORDERED: *morphine SULFATE 4 MG/ML PERIprocedure ONLY ONE ×2 (15:33→17:21)
[2017-07-23 17:40] VITALS: BP 142/68; PULSE 88; RESP 18; TEMP 97.5; O2SAT 96
[2017-07-23] MEDS ORDERED: GABAPENTIN 400 MG CAP PO SCH (18:00)
[2017-07-23] MEDS: HYDROmorphone HCL PF 2 MG/ML VIAL IV PUSH PRN ×2 (19:00→21:52)
[2017-07-23 20:00] VITALS: BP 148/76; PULSE 95; RESP 18; TEMP 97.7; O2SAT 90
[2017-07-23] MEDS ORDERED: [UNRECOGNIZED DRUG - OTHER] PO SCH (21:00)
[2017-07-23] MEDS ORDERED: TERIFLUNOMIDE PO SCH (21:00)
[2017-07-23] MEDS: levETIRAcetam 500 MG TAB PO SCH (21:51)
[2017-07-23] MEDS: METOPROLOL TARTRATE 50 MG TAB PO SCH (21:51)
[2017-07-23] MEDS: CYCLOBENZAPRINE HCL 10 MG TAB PO SCH (21:51)
[2017-07-23] MEDS: 1/2 NS + KCL 20 MEQ INJ 1,000 ML IV SCH (21:53)
[2017-07-23] MEDS: ESZOPICLONE 3 MG TAB PO PRN (22:05)
--- NOTE | 2017-07-23 22:19 | RADRPT ---
EXAM DATE/TIME: 07/23/2017 09:21 [place] COMPARISON: No previous studies available for comparison. INDICATIONS : L3-4, L4-5 Hugh laminectomy. MEDICAL HISTORY : Chronic obstructive pulmonary disease. Stroke. Cervical cancer. Uterine cancer. SURGICAL HISTORY : Hysterectomy. Appendectomy. Cholecystectomy. ENCOUNTER: Initial ACUITY: 1 day PAIN SCORE: Non-responsive. LOCATION: Lumbar spine. FINDINGS: Single limited lateral view of the lumbar spine reveals marker overlying what I believe is L4 CONCLUSION: Marker at L4 Jeremy Tenorio MD on July 23, 2017 at 22:15 Board Certified Radiologist. This report was verified electronically.
[2017-07-23] MEDS: MORPHINE SULFATE 4 MG/ML INJ IV PUSH PRN (23:03)
[2017-07-23] MEDS: DEXAMETHASONE SOD PHOS 4 MG/ML VIAL IV PUSH SCH (23:59)
[2017-07-24] MEDS: HYDROmorphone HCL PF 2 MG/ML VIAL IV PUSH PRN ×8 (00:44→22:22)
[2017-07-24] MEDS: 1/2 NS + KCL 20 MEQ INJ 1,000 ML IV SCH (02:30)
[2017-07-24 03:55] VITALS: BP 144/66; PULSE 90; RESP 18; TEMP 98; O2SAT 91
[2017-07-24] MEDS: LEVOTHYROXINE SODIUM 112 MCG TAB PO SCH (05:31)
[2017-07-24] MEDS: LEVOTHYROXINE SODIUM 25 MCG TAB PO SCH (05:31)
[2017-07-24] MEDS: DEXAMETHASONE SOD PHOS 4 MG/ML VIAL IV PUSH SCH ×4 (05:33→23:44)
[2017-07-24 07:59] LABS: AUTOMATED NEUTROPHIL # 15.3 TH/MM3 (1.8-7.7); BASOPHIL % 0.1 % (0.0-2.0); HEMATOCRIT 34.7 % (35.0-46.0); HEMOGLOBIN 11.3 GM/DL (11.6-15.3); LYMPH % 6.4 % (9.0-44.0); LYMPHOCYTE # 1.1 TH/MM3 (1.0-4.8); MEAN CELL VOLUME 96.3 FL (80.0-100.0); MEAN CORPUSCULAR HEMOGLOBIN 31.4 PG (27.0-34.0); MEAN CORPUSCULAR HGB CONC 32.6 % (32.0-36.0); MEAN PLATELET VOLUME 8.5 FL (7.0-11.0); MONO % 1.4 % (0.0-8.0); MONOCYTE # 0.2 TH/MM3 (0-0.9); NEUT % 92.1 % (16.0-70.0); PLATELET COUNT 142 TH/MM3 (150-450); RED CELL DISTRIBUTION WIDTH 14.1 % (11.6-17.2); WHITE BLOOD COUNT 16.6 TH/MM3 (4.0-11.0)
[2017-07-24 08:22] LABS: BICARBONATE 25.7 MEQ/L (21.0-32.0); CALCIUM 7.9 MG/DL (8.5-10.1)
[2017-07-24 09:00] VITALS: BP 113/65; PULSE 87; RESP 18; TEMP 98.8; O2SAT 92
[2017-07-24] MEDS: GABAPENTIN 400 MG CAP PO SCH ×3 (09:26→18:14)
[2017-07-24] MEDS: levETIRAcetam 500 MG TAB PO SCH ×2 (09:26→19:25)
[2017-07-24 12:00] VITALS: BP 136/65; PULSE 84; RESP 18; TEMP 98.2; O2SAT 91
--- NOTE | 2017-07-24 15:23 | HHI.NSPN ---
(Dwaine Osborne) History Chief Complaint: Back pain and some thigh pain. (Dwaine Osborne) Interval History 07/23: The patient presented to [facility] to undergo a bilateral L3-4 decompressive semi-laminectomy with repair of L3-4 dorsal dural fistula at catheter entry site and revision of a L4-5 decompressive semi-laminectomy and removal of a Coflex device. Post-operatively the patient was admitted to a regular med/surg floor. 07/24: The patient is seen sitting up in the chair watching TV. She complains of pain to the back as well as some anterior thigh pain. She does say that both are better. She has no numbness or tingling to the lower extremities at present. She did say last night she had bad pain to the legs which has resolved but none at present. She is tender to palpation of the surgical incision. She does have some weakness to the iliopsoas muscle bilaterally which appears related to pain, otherwise she has good motor strength to the lower extremities. (Dwaine Osborne) Exam Results 07/22/17 07/22/17 07/23/17 07/23/17 07/24/17 07/24/17 06:00 18:00 06:00 18:00 06:00 18:00 Intake Total 2500 ml 350 ml 745 ml Output Total 600 ml 1500 ml Balance 1900 ml -1150 ml 745 ml Intake Oral 350 ml IV Total 745 ml Other 2500 ml Output Urine Total 200 ml 1500 ml Estimated Blood Loss 400 ml # Bowel Movements 0 Vital Signs Date Time Temp Pulse Resp B/P (MAP) Pulse Ox O2 Delivery O2 Flow Rate FiO2 07/24/17 12:00 98.2 84 18 136/65 (88) 91 07/24/17 09:00 98.8 87 18 113/65 (81) 92 07/24/17 03:55 98.0 90 18 144/66 (92) 91 07/23/17 20:00 97.7 95 18 148/76 (100) 90 07/23/17 17:40 97.5 88 18 142/68 (92) 96 07/23/17 17:15 97.7 85 12 117/65 (82) 96 Nasal Cannula 4 07/23/17 17:00 97.7 82 12 137/58 (84) 96 Nasal Cannula 4 07/23/17 16:00 97.7 82 12 132/63 (86) 96 Nasal Cannula 4 07/23/17 15:30 97.7 82 12 138/64 (88) 96 Nasal Cannula 4 07/23/17 15:00 97.7 79 12 129/60 (83) 96 Nasal Cannula 4 07/23/17 14:30 97.7 79 12 131/60 (83) 97 Simple Mask 6 07/23/17 14:15 97.7 79 12 124/60 (81) 97 Simple Mask 6 07/23/17 14:00 97.7 82 12 168/61 (96) 97 Simple Mask 6 07/23/17 13:45 97.7 82 12 168/61 (96) 97 Simple Mask 6 07/23/17 13:30 97.7 82 16 127/70 (89) 98 Simple Mask 6 07/23/17 13:20 97.7 84 16 136/64 (88) 97 Simple Mask 6 07/23/17 11:56 98.3 104 18 176/78 (110) 92 07/23/17 07:07 98.8 59 16 115/64 (81) 95 (Dwaine Osborne) Physical Examination GENERAL: Awake & alert sitting up in the chair. Affect essentially flat. Readily interacts. No apparent distress. SKIN: Cool & dry w/o any evident rashes, ulcerations or lesions. Lumbar surgical incision w/dry & intact dressing. HEENT: Normocephalic, atraumatic. RESPIRATORY: Initially w/wheezing but cleared after coughing, after that decreased bilaterally, equal excursion, nonlaboured, on RA. CARDIOVASCULAR: S1S2 w/RRR w/o M/G/R. GASTROINTESTINAL: Abdomen soft, nontender, positive bowel sounds. GENITOURINARY: Jamison catheter to BSD w/clear yellow urine. MUSCULOSKELETAL: GE spontaneously & purposefully. No evident clubbing or deformity. Anterior thighs TTP bilaterally. TTP at surgical incision, more so superiorly, dressing intact, o/w thoracolumbar spine NTTP. NEUROLOGICAL: AAOx3. Speech clear & appropriate. Follows commands w/o difficulty. Sensation intact to light touch to the lower extremities. Motor strength is 4 to 4+/5 to the iliopsoas bilaterally, o/w it is 5/5 to all major flexion & extension muscle groups of the lower extremities. Decrease in motor strength appears to be pain related and patient does complain of pain to the lower back with testing. (Dwaine Osborne) Lab, Micro, Other Results Recent Impressions Lumbar Spine X-Ray 07/23/17 0000 Signed Impressions: Service Date/Time: Sunday, July 23, 2017 09:21 - CONCLUSION: Marker at L4 Jeremy Tenorio MD Laboratory Tests Test 07/24/17 07:25 White Blood Count 16.6 TH/MM3 Red Blood Count 3.60 MIL/MM3 Hemoglobin 11.3 GM/DL Hematocrit 34.7 % Mean Corpuscular Volume 96.3 FL Mean Corpuscular Hemoglobin 31.4 PG Mean Corpuscular Hemoglobin Concent 32.6 % Red Cell Distribution Width 14.1 % Platelet Count 142 TH/MM3 Mean Platelet Volume 8.5 FL Neutrophils (%) (Auto) 92.1 % Lymphocytes (%) (Auto) 6.4 % Monocytes (%) (Auto) 1.4 % Eosinophils (%) (Auto) 0.0 % Basophils (%) (Auto) 0.1 % Neutrophils # (Auto) 15.3 TH/MM3 Lymphocytes # (Auto) 1.1 TH/MM3 Monocytes # (Auto) 0.2 TH/MM3 Eosinophils # (Auto) 0.0 TH/MM3 Basophils # (Auto) 0.0 TH/MM3 CBC Comment DIFF FINAL Differential Comment Blood Urea Nitrogen 15 MG/DL Creatinine 1.00 MG/DL Random Glucose 148 MG/DL Calcium Level 7.9 MG/DL Sodium Level 141 MEQ/L Potassium Level 4.7 MEQ/L Chloride Level 107 MEQ/L Carbon Dioxide Level 25.7 MEQ/L Anion Gap 8 MEQ/L Estimat Glomerular Filtration Rate 57 ML/MIN (Dwaine Osborne) Medical Decision Making Impression and Plan Impression: Postoperative Diagnosis: (1) Lumbar stenosis with neurogenic claudication (2) Lumbar radiculopathy 1. L3-4 and L4-5 canal stenosis 2. Neurogenic claudication 3. Lumbar radiculopathy 4. Status post L4-5 decompressive semi-laminectomy, Coflex placement. Residual L4-5 lateral recess stenosis 5. Status post placement of intrathecal drug pump in Omar and Patient doing well post-operatively. Pain improved after surgery. Mild iliopsoas weakness bilaterally that appears to be r/t pain to the lower back, o/ w motor strength is 5/5. Afebrile the past 24 hrs. SBP elevated intermittently yesterday. Reviewed labs for today. Leukocytosis most likely r/t surgery. Drop in haemoglobin & platelets most likely r/t IVF discontinued earlier today. Decreased eGFR. POD # 1 () s/p: 1. Bilateral L3-4 decompressive semi-laminectomy 2. 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 Revision L4-5 decompressive semi-laminectomy, removal Coflex device Plan: Neuro checks q4h. VS q4h. Mobilise patient w/assistance. Physical Therapy eval & tx. Regular diet. (Dwaine Osborne) Attending Statement The exam, history, and the medical decision-making described in the above note were completed with the assistance of the mid-level provider. I reviewed and agree with the findings presented. I attest that I had a [id number] encounter with the patient on the same day, and personally performed and documented my assessment and findings in the medical record. The patient is sitting up in bed this morning, eating breakfast. The dressing is dry and intact Sensorimotor function is stable in the lower extremities compared to preoperative. No indication of CSF leak. She will proceed with physical therapy today. Plan to wean off IV pain medication today. She lives alone and states that she has no one to care for her at home until tomorrow. We will arrange for home health care physical therapy. (Sriram Wang MD) Dwaine Osborne July 24, 2017 15:23 Sriram Wang MD July 25, 2017 13:26
[2017-07-24 16:00] VITALS: BP 125/60; PULSE 84; RESP 18; TEMP 97.2; O2SAT 93
[2017-07-24] MEDS: MORPHINE SULFATE 4 MG/ML INJ IV PUSH PRN ×2 (18:13→20:44)
[2017-07-24] MEDS: FAMOTIDINE 20 MG TAB PO SCH (19:25)
[2017-07-24] MEDS: CYCLOBENZAPRINE HCL 10 MG TAB PO SCH (19:25)
[2017-07-24] MEDS: DOCUSATE SODIUM 50 MG/SENNA 8.6 MG TAB PO SCH (19:25)
[2017-07-24] MEDS: METOPROLOL TARTRATE 50 MG TAB PO SCH (19:25)
[2017-07-24 20:00] VITALS: BP 120/56; PULSE 93; RESP 18; TEMP 98.1; O2SAT 95
[2017-07-25] VITALS: BP 133/61; PULSE 82; RESP 19; TEMP 98.7; O2SAT 92
[2017-07-25] MEDS: HYDROmorphone HCL PF 2 MG/ML VIAL IV PUSH PRN ×4 (01:28→11:57)
[2017-07-25 04:00] VITALS: BP 123/60; PULSE 76; RESP 18; TEMP 98.2; O2SAT 95
[2017-07-25] MEDS: LEVOTHYROXINE SODIUM 112 MCG TAB PO SCH (04:25)
[2017-07-25] MEDS: DEXAMETHASONE SOD PHOS 4 MG/ML VIAL IV PUSH SCH ×4 (04:25→23:59)
[2017-07-25] MEDS: LEVOTHYROXINE SODIUM 25 MCG TAB PO SCH (04:25)
[2017-07-25] MEDS: MORPHINE SULFATE 4 MG/ML INJ IV PUSH PRN ×5 (06:20→20:52)
[2017-07-25 08:00] VITALS: BP 109/56; PULSE 74; RESP 18; TEMP 98.7; O2SAT 95
[2017-07-25] MEDS: levETIRAcetam 500 MG TAB PO SCH ×2 (08:40→19:58)
[2017-07-25] MEDS: FAMOTIDINE 20 MG TAB PO SCH ×2 (08:40→19:58)
[2017-07-25] MEDS: GABAPENTIN 400 MG CAP PO SCH ×3 (08:40→17:41)
[2017-07-25] MEDS: DOCUSATE SODIUM 50 MG/SENNA 8.6 MG TAB PO SCH ×2 (08:40→20:04)
[2017-07-25 12:00] VITALS: BP 127/73; PULSE 81; RESP 18; TEMP 99.1; O2SAT 95
[2017-07-25] MEDS ORDERED: HYDROmorphone HCL 2 MG TAB PO PRN (13:30)
[2017-07-25] MEDS ORDERED: WALKER WHEELS/F1 MIS (15:39)
[2017-07-25 16:00] VITALS: BP_SYST 114; BP_SYST 119; BP_DIAS 56; BP_DIAS 57; PULSE 76; PULSE 95; RESP 16; RESP 18; TEMP 98.2; TEMP 98.7; O2SAT 94; O2SAT 98
[2017-07-25 19:30] VITALS: BP 143/72; PULSE 91; RESP 16; TEMP 98.3; O2SAT 92
[2017-07-25] MEDS: METOPROLOL TARTRATE 50 MG TAB PO SCH (19:58)
[2017-07-25] MEDS: CYCLOBENZAPRINE HCL 10 MG TAB PO SCH (19:58)
[2017-07-25] MEDS: HYDROmorphone HCL PF 0.5 MG/0.5 ML SYRINGE IV PUSH PRN ×2 (19:59→23:59)
--- NOTE | 2017-07-25 20:43 | HHI.NSPN ---
History Chief Complaint: Back pain and some thigh pain. Interval History Mild to moderate low back pain. No significant lower extremity weakness. Some residual aching in the left anterior thigh-improved compared to 07/24/2017 No nausea vomiting No loss of bowel bladder function No headache Exam Results Vital Signs Date Time Temp Pulse Resp B/P (MAP) Pulse Ox O2 Delivery O2 Flow Rate FiO2 07/25/17 19:24 Room Air 07/25/17 16:00 98.2 95 18 119/57 (77) 94 07/23/17 17:15 4 Intake and Output 07/25/17 07/25/17 07/26/17 08:00 16:00 00:00 Intake Total 900 ml 1440 ml Balance 900 ml 1440 ml Physical Examination GENERAL: Awake & alert sitting up in the chair. Affect essentially flat. Readily interacts. No apparent distress. SKIN: Cool & dry w/o any evident rashes, ulcerations or lesions. Lumbar surgical incision w/dry & intact dressing. HEENT: Normocephalic, atraumatic. RESPIRATORY: I clear. CARDIOVASCULAR: S1S2 w/RRR w/o M/G/R. GASTROINTESTINAL: Abdomen soft, nontender, positive bowel sounds. GENITOURINARY: Jamison catheter to BSD w/clear yellow urine. MUSCULOSKELETAL: GE spontaneously & purposefully. No evident clubbing or deformity. Anterior thighs TTP bilaterally. TTP at surgical incision, more so superiorly, dressing intact, o/w thoracolumbar spine NTTP. NEUROLOGICAL: AAOx3. Speech clear & appropriate. Follows commands w/o difficulty. Sensation intact to light touch to the lower extremities. Motor strength is 4 to 4+/5 to the iliopsoas bilaterally, o/w it is 5/5 to all major flexion & extension muscle groups of the lower extremities. Decrease in motor strength appears to be pain related and patient does complain of pain to the lower back with testing. Medical Decision Making Impression and Plan Impression: 1. Doing relatively well post laminectomy. No evidence of ongoing CSF leak. Plan: Wean off of IV meds Continue therapy Mobilize as tolerated Anticipate discharge from 07/26/2017 discussed with patient Sriram Wang MD July 25, 2017 20:43
[2017-07-25] MEDS: ESZOPICLONE 3 MG TAB PO PRN (23:59)
[2017-07-26] VITALS: BP 145/65; PULSE 74; RESP 16; TEMP 97.8; O2SAT 93
[2017-07-26] MEDS: MORPHINE SULFATE 4 MG/ML INJ IV PUSH PRN ×4 (02:34→12:07)
[2017-07-26] MEDS: DEXAMETHASONE SOD PHOS 4 MG/ML VIAL IV PUSH SCH ×2 (05:38→12:06)
[2017-07-26] MEDS: LEVOTHYROXINE SODIUM 112 MCG TAB PO SCH (05:38)
[2017-07-26] MEDS: LEVOTHYROXINE SODIUM 25 MCG TAB PO SCH (05:38)
[2017-07-26 08:00] VITALS: BP 134/60; PULSE 61; RESP 16; TEMP 97.7; O2SAT 93
[2017-07-26] MEDS: FAMOTIDINE 20 MG TAB PO SCH ×2 (09:00→20:31)
[2017-07-26] MEDS: levETIRAcetam 500 MG TAB PO SCH ×2 (09:00→20:31)
[2017-07-26] MEDS: DOCUSATE SODIUM 50 MG/SENNA 8.6 MG TAB PO SCH ×2 (09:00→20:31)
[2017-07-26] MEDS: GABAPENTIN 400 MG CAP PO SCH ×3 (09:10→18:00)
[2017-07-26] MEDS ORDERED: DILA2TAB4 PO (11:59)
--- NOTE | 2017-07-26 11:59 | HHI.DCPOC ---
Discharge Care Plan Diagnosis: (1) Lumbar stenosis with neurogenic claudication Your Health Problems Are: Difficulty with ADL Incision/Drains Exercise Tolerance Chronic Pain Goals to Promote Your Health * To prevent worsening of your condition and complications * To maintain your health at the optimal level Directions to Meet Your Goals Take your medications as prescribed Follow your dietary instruction Follow activity as directed Keep your appointments as scheduled Take your immunizations and boosters as scheduled If your symptoms worsen call your PCP, if no PCP go to Urgent Care Center or Emergency Room Smoking is Dangerous to Your Health. Avoid second hand smoke Call the 24-hour hour crisis hotline for domestic abuse at Sriram Wang MD July 26, 2017 11:59
[2017-07-26 12:00] VITALS: BP 148/72; PULSE 79; RESP 18; TEMP 97.7; O2SAT 92
--- NOTE | 2017-07-26 12:02 | HHI.DS ---
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 CBC/BMP: 07/24/17 0725 07/24/17 0725 Significant Findings Laboratory Tests Test 07/24/17 07:25 White Blood Count 16.6 TH/MM3 (4.0-11.0) Red Blood Count 3.60 MIL/MM3 (4.00-5.30) Hemoglobin 11.3 GM/DL (11.6-15.3) Hematocrit 34.7 % (35.0-46.0) Platelet Count 142 TH/MM3 (150-450) Neutrophils (%) (Auto) 92.1 % (16.0-70.0) Lymphocytes (%) (Auto) 6.4 % (9.0-44.0) Neutrophils # (Auto) 15.3 TH/MM3 (1.8-7.7) Random Glucose 148 MG/DL (74-106) Calcium Level 7.9 MG/DL (8.5-10.1) Estimat Glomerular Filtration Rate 57 ML/MIN (>89) Hospital Course Patient underwent above-noted procedure performed without complication. Bedrest overnight following surgery with patient gradually mobilized out of bed with physical therapy and assistance on postop day #1. No evidence of CSF leakage. Dressing has remained dry and intact during the postoperative course. Stable lower extremity sensorimotor function compared to preoperative. Gradual improvement in postoperative pain with decreasing IV narcotic use. 07/26/2017 stable neurologic function, tolerating diet well, vital signs stable, stable for discharge home with home physical therapy. Pt Condition on Discharge: Good Discharge Disposition: Disch w/ Home Health Serv Discharge Instructions DIET: Follow Instructions for: As Tolerated, No Restrictions ACTIVITIES You can perform: Weight Bearing As Anil Activities to Avoid: Lifting/Bending, Strenuous Activity New Orders: Home Health Care Physical Therapy - Today New Medications: Walker with Front Wheels (Walker with Front Wheels) 1 Mis Mis EA .XX DIRECTED, #1 0 Refills Hydromorphone (Dilaudid) 2 Mg Tab 2 MG PO Q4H PRN for PAIN SCALE 8 TO 10, #30 TAB Use for breakthrough pain not controlled with hydrocodone Continued Medications: Albuterol Neb (Albuterol Neb) 2.5 Mg/3 Ml Neb 2.5 MG NEB Q4HR NEB PRN for SHORTNESS OF BREATH, #60 NEBULE 0 Refills Cyclobenzaprine (Flexeril) 10 Mg Tab 10 MG PO HS for Muscle Spasm, #90 TAB 0 Refills Eszopiclone (Lunesta) 2 Mg Tab 3 MG PO HS PRN for INSOMNIA, TAB 0 Refills Fentanyl Inj (Fentanyl Inj) 100 Mcg/2 Ml Amp 50 MCG for PAIN PUMP, AMPULE 0 Refills Gabapentin (Gabapentin) 400 Mg Cap 400 CAP PO TID, #30 CAP 0 Refills Hydrocodone/Acetaminophen (Hydrocodone-Acetamin 10-325 mg) 10 Mg-325 Mg Tablet 1 TAB PO Q6HR PRN for PAIN SCALE 4 TO 10, #60 TAB Levetiracetam (Keppra) 500 Mg Tab 500 MG PO BID for Control Seizures, #60 TAB 0 Refills Levothyroxine (Synthroid) 137 Mcg Tab 137 MCG PO DAILY for Thyroid, #30 TAB 0 Refills Metoprolol Tartrate (Metoprolol Tartrate) 50 Mg Tab 50 MG PO HS, #30 TAB 0 Refills Teriflunomide (Aubagio) 14 Mg Tab 14 MG PO HS for Multiple sclerosis, #30 TAB 0 Refills Sriram Wang MD July 26, 2017 12:02
--- NOTE | 2017-07-26 12:03 | HHI.FF ---
Face to Face Verification Diagnosis: (1) Lumbar stenosis with neurogenic claudication Physical Therapy Order: Evaluate and Treat, Improve ambulation, Strength and gait training I have seen patient Rafaela Stinson on 07/26/17. My clinical findings support the need for the requested home health care services because: Deconditioned w/ increased weakness Med compliance is questionable Limited ability to care for self High risk of falls I certify that my clinical findings support that this patient is homebound because: Post-op weakness Unsteady gait/balance Unable to use public transportation Sriram Wang MD July 26, 2017 12:03
--- NOTE | 2017-07-26 12:08 | HHI.NSPN ---
History Chief Complaint: Back pain and some thigh pain. Interval History Mild to moderate low back pain. No significant lower extremity weakness. Some residual aching in the left anterior thigh-improving No loss of bowel bladder function Complains of headache since last evening. Accompanied by nausea without emesis Exam Results Vital Signs Date Time Temp Pulse Resp B/P (MAP) Pulse Ox O2 Delivery O2 Flow Rate FiO2 07/26/17 08:00 97.7 61 16 134/60 (84) 93 07/25/17 19:24 Room Air 07/23/17 17:15 4 Intake and Output 07/26/17 07/26/17 07/27/17 08:00 16:00 00:00 Intake Total 720 ml Balance 720 ml Physical Examination GENERAL: Alert, lying down in bed, appears uncomfortable MUSCULOSKELETAL: No significant lumbar tenderness. Incision site is dry and intact. Outer dressing removed and Steri-Strips are in place. No edema drainage erythema or significant tenderness at the incision site. NEUROLOGICAL: AAOx3. Extraocular movements intact Speech clear & appropriate. Follows commands w/o difficulty. Sensation intact to light touch to the lower extremities. Motor strength within normal limits major flexion-extension groups in the lower extremities . Lab, Micro, Other Results Laboratory Tests Test 07/26/17 15:42 White Blood Count 11.0 TH/MM3 Red Blood Count 3.65 MIL/MM3 Hemoglobin 11.4 GM/DL Hematocrit 34.3 % Mean Corpuscular Volume 94.1 FL Mean Corpuscular Hemoglobin 31.2 PG Mean Corpuscular Hemoglobin Concent 33.2 % Red Cell Distribution Width 14.0 % Platelet Count 177 TH/MM3 Mean Platelet Volume 8.7 FL Neutrophils (%) (Auto) 83.4 % Lymphocytes (%) (Auto) 11.4 % Monocytes (%) (Auto) 5.0 % Eosinophils (%) (Auto) 0.0 % Basophils (%) (Auto) 0.2 % Neutrophils # (Auto) 9.2 TH/MM3 Lymphocytes # (Auto) 1.3 TH/MM3 Monocytes # (Auto) 0.6 TH/MM3 Eosinophils # (Auto) 0.0 TH/MM3 Basophils # (Auto) 0.0 TH/MM3 CBC Comment DIFF FINAL Differential Comment Blood Urea Nitrogen 30 MG/DL Creatinine 1.02 MG/DL Random Glucose 100 MG/DL Calcium Level 8.0 MG/DL Sodium Level 143 MEQ/L Potassium Level 4.1 MEQ/L Chloride Level 104 MEQ/L Carbon Dioxide Level 29.9 MEQ/L Anion Gap 9 MEQ/L Estimat Glomerular Filtration Rate 55 ML/MIN Medical Decision Making Impression and Plan Impression: 1. Lower extremity claudication and radicular symptoms improved. Now with postoperative headache starting last evening. No obvious CSF leak based on wound inspection. Plan: Due to some symptoms suggestive of CSF leak, will place the patient back at flat bedrest for 24 hours. Resume IV fluids. Labs reviewed Discussed with nursing staff Possible discharge home tomorrow depending on clinical course. Sriram Wang MD July 26, 2017 12:08
--- NOTE | 2017-07-26 14:07 | PQ ---
Physician Query Response Document PATIENT: TARSHA JENNINGS : 1960 ADMIT DATE: 07/23/2017 6:14 AM DISCH DATE: RESPONDING PROVIDER #: [email or web address] QUERY TEXT: CDS Clarification Mechanical complication of Coflex device in this patient s/p decompressive laminectomy with Coflex pl acement requiring removal of device. Other explanation of clinical findings. Unable to determine (no explanation for clinical findings). The patient's Clinical Indicators include: The medical record reflects the following clinical findings, treatment, and risk factors. * Clinical Indicators: Recurrence of claudication symptoms in bilateral lower extremities after Cofle x placement March 2017 * Risk Factors: S/P L4-5 decompressive laminectomy with Coflex placement * Treatment: Removal of Coflex device Please clarify and document your clinical opinion in the progress notes and discharge summary includi ng the definitive and/or presumptive diagnosis (suspected or probable), related to the above clinical findings. Please include clinical findings supporting your diagnosis. Thank you, Roseline Whiteside CDS: Roseline Whiteside Patient Unit: [id number] Contact Number: [phone] Room: [facility] Query created by: Roseline Whiteside on 07/24/2017 10:34 AM RESPONSE TEXT: Addendum made to op note regarding CSF fistula No complication from Coflex QUERY TEXT: CDS Clarification Other mechanical complication spinal infusion catheter r/t small dural fistula with CSF leakage requi ring repair with single stitch of 6-0 Prolene. Other explanation of clinical findings. Unable to determine (no explanation for clinical findings). The patient's Clinical Indicators include: The medical record reflects the following clinical findings, treatment, and risk factors. 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 Please include clinical findings supporting your diagnosis. Thank you, Roseline Whiteside CDS: Roseline Whiteside Patient Unit: [id number] Contact Number: [phone] Room: 1614 Query created by: Roseline Whiteside on 07/24/2017 10:47 AM RESPONSE TEXT: See other note Electronically signed by: Sriram Wang MD 07/26/2017 2:03 PM
[2017-07-26] MEDS: HYDROmorphone HCL PF 0.5 MG/0.5 ML SYRINGE IV PUSH PRN ×4 (14:54→23:56)
[2017-07-26] MEDS: ONDANSETRON ODT 4 MG TAB PO PRN ×2 (14:54→21:00)
[2017-07-26 16:00] VITALS: BP 162/72; PULSE 91; RESP 17; TEMP 98; O2SAT 94
[2017-07-26 16:28] LABS: AUTOMATED NEUTROPHIL # 9.2 TH/MM3 (1.8-7.7); BASOPHIL % 0.2 % (0.0-2.0); HEMATOCRIT 34.3 % (35.0-46.0); HEMOGLOBIN 11.4 GM/DL (11.6-15.3); LYMPH % 11.4 % (9.0-44.0); LYMPHOCYTE # 1.3 TH/MM3 (1.0-4.8); MEAN CELL VOLUME 94.1 FL (80.0-100.0); MEAN CORPUSCULAR HEMOGLOBIN 31.2 PG (27.0-34.0); MEAN CORPUSCULAR HGB CONC 33.2 % (32.0-36.0); MEAN PLATELET VOLUME 8.7 FL (7.0-11.0); MONOCYTE # 0.6 TH/MM3 (0-0.9); NEUT % 83.4 % (16.0-70.0); PLATELET COUNT 177 TH/MM3 (150-450); RED BLOOD COUNT 3.65 MIL/MM3 (4.00-5.30)
[2017-07-26 16:48] LABS: BICARBONATE 29.9 MEQ/L (21.0-32.0); CREATININE 1.02 MG/DL (0.50-1.00)
[2017-07-26] MEDS: 1/2 NS + KCL 20 MEQ INJ 1,000 ML IV SCH (18:14)
[2017-07-26 19:25] VITALS: BP 116/58; PULSE 87; RESP 17; TEMP 98; O2SAT 93
[2017-07-26] MEDS: CYCLOBENZAPRINE HCL 10 MG TAB PO SCH (20:30)
[2017-07-26] MEDS: METOPROLOL TARTRATE 50 MG TAB PO SCH (20:31)
[2017-07-26] MEDS: MORPHINE SULFATE 15 MG CONTROLLED RELEASE TAB PO SCH (20:32)
[2017-07-26] MEDS: ESZOPICLONE 3 MG TAB PO PRN (21:59)
[2017-07-26 23:50] VITALS: BP 125/68; PULSE 63; RESP 17; TEMP 97.4; O2SAT 92
[2017-07-27] MEDS: HYDROmorphone HCL PF 0.5 MG/0.5 ML SYRINGE IV PUSH PRN ×3 (02:59→09:03)
[2017-07-27] MEDS: LEVOTHYROXINE SODIUM 25 MCG TAB PO SCH (06:11)
[2017-07-27] MEDS: LEVOTHYROXINE SODIUM 112 MCG TAB PO SCH (06:12)
[2017-07-27] MEDS: 1/2 NS + KCL 20 MEQ INJ 1,000 ML IV SCH (06:15)
[2017-07-27 08:05] VITALS: BP 133/60; PULSE 65; RESP 18; TEMP 98.1; O2SAT 94
[2017-07-27] MEDS: FAMOTIDINE 20 MG TAB PO SCH (08:56)
[2017-07-27] MEDS: DOCUSATE SODIUM 50 MG/SENNA 8.6 MG TAB PO SCH ×2 (08:57→09:00)
[2017-07-27] MEDS: levETIRAcetam 500 MG TAB PO SCH (08:57)
[2017-07-27] MEDS: GABAPENTIN 400 MG CAP PO SCH (08:57)
[2017-07-27] MEDS: ONDANSETRON ODT 4 MG TAB PO PRN (08:57)
[2017-07-27] MEDS: MORPHINE SULFATE 15 MG CONTROLLED RELEASE TAB PO SCH (10:15)
--- NOTE | 2017-07-27 10:23 | HHI.NSPN ---
History Chief Complaint: Back pain and some thigh pain. Interval History Still having headache. Reports confusion concerning medication Exam Results Vital Signs Date Time Temp Pulse Resp B/P (MAP) Pulse Ox O2 Delivery O2 Flow Rate FiO2 07/27/17 08:05 98.1 65 18 133/60 (84) 94 07/26/17 20:00 Room Air 07/23/17 17:15 4 Intake and Output 07/27/17 07/27/17 07/28/17 08:00 16:00 00:00 Intake Total 1720 ml Balance 1720 ml Physical Examination Alert and awake. Follows commands. Somewhat agitated because of confusion with meds Back wound appears flat and without drainage Medical Decision Making Impression and Plan Moderate headache. Have asked patient to slowly rise had a bed and then be out of bed to the chair to determine level of headache. Patient will be able to be discharged if no increase in headache while up. Discussed with patient and with charge nurse. New prescription given for patient's pain Ady Antunez MD July 27, 2017 10:23
== END 2017-07-27 11:22 | disposition home health service (06) | DRG 519 ==
LOC: HSDI 06:14 → N06B 17:44
PROVIDERS: ADMIT Neurological Surgery; ATTEND Neurological Surgery
PROC: 01NB0ZZ Release Lumbar Nerve, Open Approach (ICD-10-PCS; 2017-07-23)
PROC: 0QP004Z Removal of Internal Fixation Device from Lumbar Vertebra, Open Approach (ICD-10-PCS; 2017-07-23)
PROC: 00QT0ZZ Repair Spinal Meninges, Open Approach (ICD-10-PCS; principal; 2017-07-23 08:26)
DX: M48.062 Spinal stenosis, lumbar region with neurogenic claudication (principal); G96.0 Cerebrospinal fluid leak; I10 Essential (primary) hypertension; T85.690A Other mechanical complication of cranial or spinal infusion catheter, initial encounter; M54.16 Radiculopathy, lumbar region; G89.29 Other chronic pain; R51 Headache; E78.5 Hyperlipidemia, unspecified; I25.10 Atherosclerotic heart disease of native coronary artery without angina pectoris; I73.9 Peripheral vascular disease, unspecified; I49.9 Cardiac arrhythmia, unspecified; F17.210 Nicotine dependence, cigarettes, uncomplicated; E03.9 Hypothyroidism, unspecified; M19.90 Unspecified osteoarthritis, unspecified site; G35 Multiple sclerosis; Z85.3 Personal history of malignant neoplasm of breast; Z85.41 Personal history of malignant neoplasm of cervix uteri; Z86.73 Personal history of transient ischemic attack (TIA), and cerebral infarction without residual deficits
CPT/HCPCS: 72020; 76000; 80048; 85025; 86850; 86900; 86901; 86920; 94150; 94664; C9290; J0690; J1100; J1170; J1580; J2250; J2270; J2370; J2405; J3010; J7050; J7120; J7613; J8501